=== PATIENT | male | born 1950 | race Caucasian/White ===

== ENCOUNTER 2017-06-22 18:46 | Inpatient (IN) ==
--- OUTSIDE RECORDS SUMMARY | 2017-06-22 19:32 | External Medical Summary | Referral Summary ---
:1950 Author Organization [facility] [place] [address] Care Team Providers Name Role Phone Kennedy Salazar Isabelle Primary Care Physician Encounter VC Date(s): 11/20/14 - 11/20/14 [facility] [place] [address] [place] Discharge Diagnosis: Gastroesophageal reflux disease Discharge Diagnosis: Benign essential hypertension Discharge Diagnosis: Diabetes Discharge Diagnosis: Allergic rhinitis Discharge Diagnosis: CAD (coronary artery disease) Discharge Diagnosis: Pure hypercholesterolemia Discharge Disposition: 01-Home or Self Care Attending Physician: Moises Mccoy MD Admitting Physician: Moises Mccoy MD Vital Signs Most recent to oldest [Reference Range]: 1 Temperature Tympanic [36.6-38.1 degC] 36.5 degC *LOW* (11/20/14 9:52 AM) Peripheral Pulse Rate [60-100 bpm] 66 bpm (11/20/14 9:52 AM) Blood Pressure [90-140/60-90 mmHg] 150/74 mmHg *HI* (11/20/14 9:52 AM) Problem List Condition Effective Dates Status Health Status Informant Benign essential hypertension Active (disorder)(Confirmed) Chronic obstructive pulmonary Active disease (COPD)(Confirmed) CAD (coronary artery Active disease)(Confirmed) CAD (coronary artery Active disease)(Confirmed) Gastroesophageal reflux disease Active (disorder)(Confirmed) Hip pain(Confirmed) Active Obesity(Confirmed) Active patient Paroxysmal atrial Active fibrillation(Confirmed) Pure hypercholesterolemia Active (disorder)(Confirmed) Pure hypercholesterolemia(Confirmed) Active Type 2 diabetes mellitus, Active controlled(Confirmed) Allergic rhinitis Active (disorder)(Confirmed) Allergic rhinitis(Confirmed) < 11/01/13 Resolved Allergies, Adverse Reactions, Alerts No Known Medication Allergies Medications amLODIPine 10 mg oral tablet tabs, Oral, Daily, 0 Refill(s) Start Date: 06/27/14 Status: Orderedatorvastatin 40 mg oral tablet 1 tabs, Oral, Bedtime (once a day), 0 Refill(s) Start Date: 08/02/13 Status: OrderedFish Oil 1200 mg oral capsule mg caps, Oral, BID, 0 Refill(s) Start Date: 06/01/15 Status: Orderedfluticasone 50 mcg/inh nasal spray See Instructions, USE ONE SPRAY(S) IN EACH NOSTRIL TWICE DAILY, # 1 Each, 11 Refill(s), Pharmacy: [id number] Start Date: 05/22/15 Status: OrderedGlucometer (DME) DME Item Using One Touch Ultra to check BGM 1 time daily. 250.00, See Instructions, # 1 Each, 0 Refill(s), Supply Start Date: 08/02/13 Status: Orderedglucosamine 1,500 mg, Oral, Daily, 0 Refill(s) Start Date: 08/02/13 Status: Orderedlisinopril 10 mg oral tablet 1 tabs, Oral, Daily, 0 Refill(s) Start Date: 08/02/13 Status: OrderedmetFORMIN 500 mg oral tablet 1,000 mg 2 tabs, Oral, BID, X 90 days, # 360 tabs, 1 Refill(s), Pharmacy: [facility], 2 tabs Oral BID,x90 days Start Date: 04/09/15 Stop Date: 10/06/15 Status: Orderedomeprazole 40 mg oral delayed release capsule 40 mg 1 caps, Oral, Daily, # 90 caps, 3 Refill(s), Pharmacy: [facility], 1 caps Oral Daily Start Date: 04/09/15 Status: Orderedone touch ultra blue test strip one touch ultra blue test strip, See Instructions, test blood sugars fasting and 2 hrs pc on 3 days per week E11.9, # 100 Each, 10 Refill(s), Pharmacy: [id number], test blood sugars fasting and 2 hrs pc on 3 days per week E11.9 Start Date: 01/31/15 Status: OrderedPradaxa 150 mg oral capsule 150 mg 1 caps, Oral, BID, # 60 caps, 0 Refill(s) Start Date: 05/22/15 Status: Orderedtamsulosin 0.4 mg oral capsule 0.4 mg 1 caps, Oral, Daily, # 90 caps, 3 Refill(s), Pharmacy: [facility], 1 caps Oral Daily Start Date: 04/09/15 Status: Ordered Results Chemistry Most recent to oldest [Reference Range]: 1 Sodium Lvl [135-144 mEq/L] 140 mEq/L (11/20/14 11:10 AM) Potassium Lvl [3.5-5.2 mEq/L] 4.4 mEq/L (11/20/14 11:10 AM) Chloride [99-111 mEq/L] 110 mEq/L (11/20/14 11:10 AM) CO2 [23-31 mEq/L] 25 mEq/L (11/20/14 11:10 AM) AGAP [3-20] 5 (11/20/14 11:10 AM) BUN [8-26 mg/dL] 17 mg/dL (11/20/14 11:10 AM) Glucose Lvl [70-99 mg/dL] 138 mg/dL *HI* (11/20/14 11:10 AM) Creatinine Lvl [0.72-1.25 mg/dL] 1.14 mg/dL (11/20/14 11:10 AM) eGFR [>60 mL/min] >60 mL/min 1 (11/20/14 11:10 AM) Calcium Lvl [8.9-10.5 mg/dL] 9.4 mg/dL (11/20/14 11:10 AM) Albumin Lvl [3.4-4.8 gm/dL] 4.0 gm/dL (11/20/14 11:10 AM) Total Protein [6.2-8.1 gm/dL] 7.2 gm/dL (11/20/14 11:10 AM) Globulin [1.8-4.0 gm/dL] 3.2 gm/dL (11/20/14 11:10 AM) ALT [0-55 U/L] 25 U/L (11/20/14 11:10 AM) AST [5-34 U/L] 17 U/L (11/20/14 11:10 AM) Alk Phos [40-150 U/L] 51 U/L (11/20/14 11:10 AM) Bili Total [0.2-1.2 mg/dL] 0.3 mg/dL (11/20/14 11:10 AM) LDL Direct [0-129 mg/dL] 64 mg/dL (11/20/14 11:10 AM) Hgb A1c [4.1-5.6 %] 6.6 % *HI* (11/20/14 11:10 AM) eAvg Glucose 142.7 mg/dL (11/20/14 11:10 AM) 1Result Comment: Multiply eGFR results by 1.21 for race. Immunizations Vaccine Date Refusal Reason influenza virus vaccine, live 11/23/12 influenza virus vaccine, live 11/25/11 zoster vaccine live 02/02/12 Procedures Procedure Date Related Diagnosis Body Site Colonoscopy1 01/21/08 Cerebral aneurysm rupture 02/27/99 Orchiectomy-left 1947 Bilateral inguinal hernia as a child2 Tonsillectomy3 1Sigmoid diverticulosis. Repeat colonoscopy in 10 years.- CT done February 22, [address] Martin showeddiverticulitis mild.2in [id number] Social History Social History Type Response Smoking Status Former smoker; Type: Cigarettes1 1quit 03/20/2010 Assessment and Plan Extracted from: Title: Office Visit Note Author: Moises Mccoy MD Date: 11/20/14 Assessment/Plan Allergic rhinitis Benign essential hypertension CAD (coronary artery disease) Ordered: Message for Lab Diabetes Ordered: Hemoglobin A1c Gastroesophageal reflux disease Pure hypercholesterolemia Plan: Continue all current medications. I'm going to have you bring her blood pressure cuff in to check it against ours since her blood pressure was high here today. I think that it is higher here than it is at home. Otherwise continue all current medications I'm checking your lab tests today and we'll send you a report when it's finished. We discussed the need to find a new primary care doctor. We'll need a med check up in 3 months. Ordered: Comprehensive Metabolic Panel LDL Direct
--- OUTSIDE RECORDS SUMMARY | 2017-06-22 19:32 | External Medical Summary | Referral Summary ---
:1950 Author Organization [facility] [place] [address] Care Team Providers Name Role Phone Kennedy Salazar V Primary Care Physician Encounter VC Date(s): 02/20/15 - 02/20/15 [facility] [place] [address] [place] Discharge Diagnosis: Gastroesophageal reflux disease Discharge Diagnosis: Type 2 diabetes mellitus, controlled Discharge Diagnosis: Allergic rhinitis Discharge Diagnosis: Benign essential hypertension Discharge Diagnosis: CAD (coronary artery disease) Discharge Diagnosis: Pure hypercholesterolemia Discharge Disposition: 01-Home or Self Care Attending Physician: Kennedy Salazar MD Admitting Physician: Kennedy Salazar MD Vital Signs Most recent to oldest [Reference Range]: 1 Temperature Tympanic [36.6-38.1 degC] 35.7 degC *LOW* (02/20/15 8:47 AM) Peripheral Pulse Rate [60-100 bpm] 65 bpm (02/20/15 8:47 AM) Blood Pressure [90-140/60-90 mmHg] 132/75 mmHg (02/20/15 8:47 AM) Problem List Condition Effective Dates Status Health Status Informant Allergic rhinitis due to animal hair Active and dander(Confirmed) Arthralgia of the pelvic region and Active thigh (finding)(Confirmed) Benign essential hypertension Active (disorder)(Confirmed) Chronic obstructive pulmonary Active disease (COPD)(Confirmed) CAD (coronary artery Active disease)(Confirmed) CAD (coronary artery Active disease)(Confirmed) Diabetes(Confirmed) Active Esophageal reflux(Confirmed) Active Gastroesophageal reflux disease Active (disorder)(Confirmed) Hip pain(Confirmed) Active Hypertension(Confirmed) Active Obesity(Confirmed) Active patient Paroxysmal atrial Active fibrillation(Confirmed) Pure hypercholesterolemia Active (disorder)(Confirmed) Pure hypercholesterolemia(Confirmed) Active Type 2 diabetes mellitus, Active controlled(Confirmed) Allergic rhinitis Active (disorder)(Confirmed) Allergic rhinitis(Confirmed) < 11/01/13 Resolved Allergies, Adverse Reactions, Alerts No Known Medication Allergies Medications amLODIPine 10 mg oral tablet tabs, Oral, Daily, 0 Refill(s) Start Date: 06/27/14 Status: Orderedaspirin 325 mg, Oral, Daily, 0 Refill(s) Start Date: 08/02/13 Status: Orderedatorvastatin 40 mg oral tablet 1 tabs, Oral, Bedtime (once a day), 0 Refill(s) Start Date: 08/02/13 Status: Orderedclopidogrel 75 mg oral tablet 75 mg 1 tabs, Oral, Daily, 0 Refill(s) Start Date: 08/07/14 Status: Orderedfluticasone 50 mcg/inh nasal spray See Instructions, USE ONE SPRAY(S) IN EACH NOSTRIL TWICE DAILY, # 16 unknown unit, 2 Refill(s), eRx:[id number], USE ONE SPRAY(S) IN EACH NOSTRIL TWICE DAILY Start Date: 08/28/14 Status: OrderedGlucometer (DME) DME Item Using One Touch Ultra to check BGM 1 time daily. 250.00, See Instructions, # 1 Each, 0 Refill(s), Supply Start Date: 08/02/13 Status: Orderedglucosamine 1,500 mg, Oral, Daily, 0 Refill(s) Start Date: 08/02/13 Status: Orderedlisinopril 10 mg oral tablet 1 tabs, Oral, Daily, 0 Refill(s) Start Date: 08/02/13 Status: OrderedmetFORMIN 500 mg oral tablet See Instructions, TAKE 2 TABLETS TWICE DAILY, # 360 tabs, eRx: [facility], TAKE 2TABLETS TWICE DAILY Start Date: 02/01/15 Status: Orderedomeprazole 40 mg oral delayed release capsule 1 caps, Oral, Daily, # 90 caps, 3 Refill(s), [facility], 1 caps Oral Daily Start Date: 05/09/14 Status: Orderedone touch ultra blue test strip one touch ultra blue test strip, See Instructions, test blood sugars fasting and 2 hrs pc on 3 days per week E11.9, # 100 Each, 10 Refill(s), Pharmacy: [facility], test blood sugars fasting and 2 hrs pc on 3 days per week E11.9 Start Date: 01/31/15 Status: Orderedtamsulosin 0.4 mg oral capsule 0.4 mg 1 caps, Oral, Daily, # 30 caps, 5 Refill(s), Pharmacy: [facility], 1 caps Oral Daily Start Date: 09/20/14 Status: Ordered Results No data available for this section Immunizations Vaccine Date Refusal Reason influenza virus vaccine, live 11/23/12 influenza virus vaccine, live 11/25/11 zoster vaccine live 02/02/12 Procedures Procedure Date Related Diagnosis Body Site Colonoscopy1 01/21/08 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 Repeat colonoscopy in [address] years.- CT done February 22, [address] Martin showeddiverticulitis mild.2in [id number] Social History Social History Type Response Smoking Status Former smoker; Type: Cigarettes1 1quit 03/20/2010 Assessment and Plan Extracted from: Title: Ambulatory Patient Education Author: Kennedy Salazar MD Date: Family Medicine Diabetes and Exercise Exercising regularly is important. It is not just about losing weight. It has many health benefits, such as: Improving your overall fitness, flexibility, and endurance. Increasing your bone density. Helping with weight control. Decreasing your body fat. Increasing your muscle strength. Reducing stress and tension. Improving your overall health. People with diabetes who exercise gain additional benefits because exercise: Reduces appetite. Improves the body's use of blood sugar (glucose). Helps lower or control blood glucose. Decreases blood pressure. Helps control blood lipids (such as cholesterol and triglycerides). Improves the body's use of the hormone insulin by: Increasing the body's insulin sensitivity. Reducing the body's insulin needs. Decreases the risk for heart disease because exercising: Lowers cholesterol and triglycerides levels. Increases the levels of good cholesterol (such as high-density lipoproteins [HDL]) in the body. Lowers blood glucose levels. YOUR ACTIVITY PLAN Choose an activity that you enjoy and set realistic goals. Your health care provider or agricultural extension educator can help you make an activity plan that works for you. Exercise regularly as directed by your health care provider. This includes: Performing resistance training twice a week such as push-ups, sit-ups, lifting weights, or using resistance bands. Performing 150 minutes of cardio exercises each week such as walking, running, or playing sports. Staying active and spending no more than 90 minutes at one time being inactive. Even short bursts of exercise are good for you. Three 10-minute sessions spread throughout the day are just as beneficial as a single 30-minute session. Some exercise ideas include: Taking the dog for a walk. Taking the stairs instead of the elevator. Dancing to your favorite song. Doing an exercise video. Doing your favorite exercise with a friend. RECOMMENDATIONS FOR EXERCISING WITH TYPE 1 OR TYPE 2 DIABETES Check your blood glucose before exercising. If blood glucose levels are greater than 240 mg/dL, check for urine ketones. Do not exercise if ketones are present. Avoid injecting insulin into areas of the body that are going to be exercised. For example, avoid injecting insulin into: The arms when playing tennis. The legs when jogging. Keep a record of: Food intake before and after you exercise. Expected peak times of insulin action. Blood glucose levels before and after you exercise. The type and amount of exercise you have done. Review your records with your health care provider. Your health care provider will help you to develop guidelines for adjusting food intake and insulin amounts before and after exercising. If you take insulin or oral hypoglycemic agents, watch for signs and symptoms of hypoglycemia. They include: Dizziness. Shaking. Sweating. Chills. Confusion. Drink plenty of water while you exercise to prevent dehydration or heat stroke. Body water is lost during exercise and must be replaced. Talk to your health care provider before starting an exercise program to make sure it is safe for you. Remember, almost any type of activity is better than none. Document Released: 04/24/2004 Document Revised: 06/19/2014 Document Reviewed: 07/12/2013 ExitCare Patient Information 2015 [place], [facility]. This information is not intended to replace advice given to you by your health care provider. Make sure you discuss any questions you have with your health care provider. No follow up information was provided. Extracted from: Title: Get acquainted/CDM Author: Kennedy Salazar MD Date: 02/20/15 Assessment/Plan Allergic rhinitis Benign essential hypertension CAD (coronary artery disease) Gastroesophageal reflux disease Pure hypercholesterolemia Type 2 diabetes mellitus, controlled Overall he seems to be doing well and we will continue present care. Continue physical therapy for the shoulder. We'll provide refills as needed. Follow-up again in about 3 months when he'll be due for A1c, BMP, lipids, microalbumin. We will send a copy of this dictation to his fixed capital clerk, Dr. Coates.
--- OUTSIDE RECORDS SUMMARY | 2017-06-22 19:32 | External Medical Summary | Referral Summary ---
:1950 Author Organization [facility] Address [address] [place] [address] Care Team Providers Name Role Phone Kennedy Salazar V Primary Care Physician Encounter VC Date(s): 05/29/16 - 05/29/16 [facility] [address] [place] [address] [place] Discharge Disposition: 01-Home or Self Care Attending Physician: Juan C New MD Admitting Physician: Juan C New MD Vital Signs Most recent to oldest [Reference Range]: 1 Peripheral Pulse Rate [60-100 bpm] 87 bpm (05/29/16 10:52 AM) Blood Pressure [90-140/60-90 mmHg] 135/79 mmHg (05/29/16 10:52 AM) Problem List Condition Effective Dates Status Health Status Informant Benign essential hypertension Active (disorder)(Confirmed) Chronic obstructive pulmonary Active disease (COPD)(Confirmed) CAD (coronary artery Active disease)(Confirmed) CAD (coronary artery Active disease)(Confirmed) Dyspnea(Confirmed) Active Gastroesophageal reflux disease Active (disorder)(Confirmed) Hip pain(Confirmed) Active History of percutaneous coronary Active intervention(Confirmed) Hypercholesteremia(Confirmed) Active Brain aneurysm(Confirmed) Active Obesity(Confirmed) Active patient Paroxysmal atrial Active fibrillation(Confirmed) Pure hypercholesterolemia Active (disorder)(Confirmed) Pure hypercholesterolemia(Confirmed) Active Snoring(Confirmed) Active Type 2 diabetes mellitus, Active controlled(Confirmed) [...] DAILY, # 1 Each, 11 Refill(s), Pharmacy: [facility] Start Date: 05/22/15 Status: OrderedGlucometer (DME) DME Item Using One Touch Ultra to check BGM 1 time daily. 250.00, See Instructions, # 1 Each, 0 Refill(s), Supply Start Date: 08/02/13 Status: OrderedGlucometer strips (DME) DME Item PT USES ONE TOUCH ULTRA TEST STRIPS TO CHECK BS BID FOR DX E11.9, See Instructions, # 100 Each, 0 Refill(s), Pharmacy: [facility], PT USES ONE TOUCH ULTRA TEST STRIPS TO CHECK BS BID FOR DX E11.9, Supply Start Date: 01/29/16 Status: Orderedlisinopril 40 mg oral tablet 40 mg 1 tabs, Oral, Daily, # 30 tabs, 0 Refill(s) Start Date: 05/08/16 Status: OrderedmetFORMIN 500 mg oral tablet See Instructions, TAKE 2 TABLETS TWICE DAILY, # 360 tabs, 1 Refill(s), eRx: [facility], TAKE 2 TABLETS TWICE DAILY Start Date: 11/19/15 Status: Orderedomeprazole 40 mg oral delayed release capsule See Instructions, TAKE 1 CAPSULE BY MOUTH EVERY DAY, # 90 caps, [id number], TAKE 1 CAPSULE BY MOUTH EVERY DAY Start Date: 05/19/16 Status: Orderedone touch ultra blue test strip one touch ultra blue test strip, See Instructions, test blood sugars fasting and 2 hrs pc on 3 days per week E11.9, # 100 Each, 10 Refill(s), Pharmacy: [facility], test blood sugars fasting and 2 hrs pc on 3 days per week E11.9 Start Date: 01/31/15 Status: OrderedONE TOUCH ULTRA BLUE TESTST(NEW)100 See Instructions, TEST BLOOD SUGARS TWICE DAILY, # 100 strip, 1 Refill(s), eRx: [id number], TEST BLOOD SUGARS TWICE DAILY Start Date: 04/14/16 Status: OrderedoxyCODONE Oral, Shoulder surgery 07/30/15, 0 Refill(s) Start Date: 09/21/15 Status: OrderedPradaxa 150 mg oral capsule 150 mg 1 caps, Oral, BID, # 60 caps, 0 Refill(s) Start Date: 05/22/15 Status: Orderedtamsulosin 0.4 mg oral capsule 0.4 mg 1 caps, Oral, Daily, # 90 caps, 3 Refill(s), Pharmacy: [facility], 1 caps Oral Daily Start Date: 04/09/15 Status: Ordered Results No data available for this section Immunizations Given and Recorded Vaccine Date Status Refusal Reason influenza virus vaccine, live 11/23/12 Given influenza virus vaccine, live 11/25/11 Given pneumococcal 13-valent conjugate vaccine 12/31/15 Given zoster vaccine live 02/02/12 Given Procedures Procedure Date Related Diagnosis Body Site Colonoscopy1 01/21/08 Cerebral aneurysm rupture 02/27/99 Orchiectomy-left 1948 Bilateral inguinal hernia as a child2 Tonsillectomy3 1Sigmoid diverticulosis. Repeat colonoscopy in [address].- CT done February 22, [address] Martin showeddiverticulitis mild.2in [id number] Social History Social History Type Response Smoking Status Former smoker; Type: Cigarettes1 1quit 03/20/2010 Assessment and Plan No data available for this section
--- OUTSIDE RECORDS SUMMARY | 2017-06-22 19:32 | External Medical Summary | Referral Summary ---
:1950 Author Organization [facility] [place] [address] Care Team Providers Name Role Phone Kennedy Salazar V Primary Care Physician Encounter VC Date(s): 08/07/14 - 08/07/14 [facility] [place] [address] Discharge Disposition: 01-Home or Self Care Attending Physician: Moises Mccoy MD Admitting Physician: Moises Mccoy MD Vital Signs Most recent to oldest [Reference Range]: 1 Temperature Tympanic [36.6-38.1 degC] 36.5 degC *LOW* (08/07/14 10:26 AM) Peripheral Pulse Rate [60-100 bpm] 64 bpm (08/07/14 10:26 AM) Blood Pressure [90-140/60-90 mmHg] 150/86 mmHg *HI* (08/07/14 10:26 AM) Problem List Condition Effective Dates Status Health Status Informant Arthralgia of the pelvic region and Active thigh (finding)(Confirmed) Benign essential hypertension Active (disorder)(Confirmed) Chronic obstructive pulmonary disease Active (COPD)(Confirmed) CAD (coronary artery Active disease)(Confirmed) CAD (coronary artery Active disease)(Confirmed) Diabetes(Confirmed) Active Esophageal reflux(Confirmed) Active Gastroesophageal reflux disease Active (disorder)(Confirmed) Hip pain(Confirmed) Active Hypertension(Confirmed) Active Obesity(Confirmed) Active patient Paroxysmal atrial Active fibrillation(Confirmed) Pure hypercholesterolemia Active (disorder)(Confirmed) Pure hypercholesterolemia(Confirmed) Active Allergic rhinitis Active (disorder)(Confirmed) Allergic rhinitis(Confirmed) Active Allergies, Adverse Reactions, Alerts No Known Medication [...] DAILY, # 16 unknown unit, 2 Refill(s), eRx:[facility], USE ONE SPRAY(S) IN EACH [...] 08/02/13 Status: OrderedmetFORMIN 500 mg oral tablet 2 tabs, Oral, BID, # 360 tabs, 3 Refill(s), Pharmacy: [facility], 2 tabs Oral BID Start Date: 05/09/14 Status: Orderedomeprazole 40 mg oral delayed release capsule 1 caps, Oral, Daily, # 90 caps, 3 Refill(s), Pharmacy: [facility], 1 caps Oral Daily Start Date: 05/09/14 Status: OrderedONE TOUCH ULTRA BLUE TEST STP See Instructions, TEST BLOOD SUGAR FASTING AND TWO HOURS AFTER MEALS ON 3 DAYS OF THE WEEK, # 100 strip, eRx: [facility], TEST BLOOD SUGAR FASTING AND TWO HOURS AFTER MEALS ON 3 DAYS OF THEWEEK Start Date: 12/27/13 Status: OrderedONE TOUCH ULTRA BLUE TEST STRIPS ONE TOUCH ULTRA BLUE TEST STRIPS, See Instructions, Test blood sugar fasting and two hours after meals on three days of the week. Dx: 250.00, # 150 Each, 3 Refill(s), Pharmacy: [facility],Test blood sugar fasting and two hours after meal... Start Date: 06/06/14 Status: OrderedONE TOUGH ULTRA BLUE TEST STRIPS ONE TOUGH ULTRA BLUE TEST STRIPS, See Instructions, Check blood sugar up to twice a day DX. 250.00, # 100 Each, 2 Refill(s), Pharmacy: [facility], Check blood sugar up to twice a day ; DX. 250.00 Start Date: 08/09/14 Status: Orderedtamsulosin 0.4 mg oral capsule 0.4 mg 1 caps, Oral, Daily, # 30 caps, 5 Refill(s), Pharmacy: [facility], 1 caps Oral Daily Start Date: 09/20/14 Status: Ordered Results Chemistry Most recent to oldest [Reference Range]: 1 Sodium Lvl [135-144 mEq/L] 141 mEq/L (08/07/14 11:50 AM) Potassium Lvl [3.5-5.2 mEq/L] 4.6 mEq/L (08/07/14 11:50 AM) Chloride [99-111 mEq/L] 109 mEq/L (08/07/14 11:50 AM) CO2 [23-31 mEq/L] 24 mEq/L (08/07/14 11:50 AM) AGAP [3-20] 8 (08/07/14 11:50 AM) BUN [8-26 mg/dL] 21 mg/dL (08/07/14 11:50 AM) Glucose Lvl [70-99 mg/dL] 118 mg/dL *HI* (08/07/14 11:50 AM) Creatinine Lvl [0.72-1.25 mg/dL] 1.08 mg/dL (08/07/14 11:50 AM) eGFR [>60 mL/min] >60 mL/min 1 (08/07/14 11:50 AM) Calcium Lvl [8.9-10.5 mg/dL] 10.0 mg/dL (08/07/14 11:50 AM) Albumin Lvl [3.4-4.8 gm/dL] 4.5 gm/dL (08/07/14 11:50 AM) Total Protein [6.2-8.1 gm/dL] 7.9 gm/dL (08/07/14 11:50 AM) Globulin [1.8-4.0 gm/dL] 3.4 gm/dL (08/07/14 11:50 AM) ALT [0-55 U/L] 30 U/L (08/07/14 11:50 AM) AST [5-34 U/L] 18 U/L (08/07/14 11:50 AM) Alk Phos [40-150 U/L] 58 U/L (08/07/14 11:50 AM) Bili Total [0.2-1.2 mg/dL] 0.4 mg/dL (08/07/14 11:50 AM) Hgb A1c [4.1-5.6 %] 6.4 % *HI* (08/07/14 11:50 AM) eAvg Glucose 137.0 mg/dL (08/07/14 11:50 AM) 1Result Comment: Multiply eGFR results by [...] 22, [address] Martin showeddiverticulitis mild.2in [id number] Social History Social History Type Response Smoking Status Former smoker; Type: Cigarettes1 1quit 03/20/2010 Assessment and Plan Extracted from: Title: Office Visit Note Author: Moises Mccoy MD Date: 08/07/14 Assessment/Plan Benign essential hypertension (disorder) CAD (coronary artery disease) Diabetes Gastroesophageal reflux disease (disorder) Paroxysmal atrial fibrillation Ordered: ECG Holter Pure hypercholesterolemia SOB (shortness of breath) Plan: I am ordering a Holter monitor to see if your going in and out of atrial fibrillation and if so how fast her heart rate is going. I'm also ordering a pulmonary function test to rule out COPD. I suspect that you're leg weakness is probably a combination of multiple factors. I believe that you're heart disease probably contributes. I suspect that you have some element of COPD. I also s uspect that atrial fibrillation may be contributing. He may have some level of deconditioning. I reviewed the echocardiogram done about a month ago. I' m setting you up to see Dr. Dominguez for your hronic cardiovascular care. I want to see back in 2 weeks. Regarding your diabetes hypertension high cholesterol and other chronic medical problems, continue all current medications. For med check up I'm going to recheck in 3 months. Also I want you to restart Flonase 2 squirts each nostril twice a day. To see if this will decrease your cough. Follow-up in 2 weeks. Ordered: Pulmonary Function Testing
--- OUTSIDE RECORDS SUMMARY | 2017-06-22 19:32 | External Medical Summary | Referral Summary ---
:1950 Author Organization [facility] Address [address] [place] [address] Care Team Providers Name Role Phone Kennedy Salazar V Primary Care Physician Encounter VC Date(s): 06/01/15 - 06/01/15 [facility] [address] [place] [address] [place] Discharge Diagnosis: Ingrowing left great toenail Discharge Disposition: 01-Home or Self Care Attending Physician: Kolby Vinson DPM Admitting Physician: Kolby Vinson DPM Vital Signs No data available for this section Problem List Condition Effective Dates Status Health [...] DAILY, # 1 Each, 11 Refill(s), Pharmacy: [facility] Start Date: 05/22/15 Status: OrderedGlucometer [...] days, # 360 tabs, 1 Refill(s), Pharmacy: [facility], 2 tabs Oral BID,x90 days Start Date: 04/09/15 Stop Date: 10/06/15 Status: Orderedomeprazole 40 mg oral delayed release capsule 40 mg 1 caps, Oral, Daily, # 90 caps, 3 Refill(s), Pharmacy: [facility], 1 caps Oral Daily Start Date: 04/09/15 Status: Orderedone touch ultra blue test strip one touch ultra blue test strip, See Instructions, test blood sugars fasting and 2 hrs pc on 3 days per week E11.9, # 100 Each, 10 Refill(s), Pharmacy: [facility], test blood sugars fasting and 2 hrs pc on 3 days per week E11.9 Start Date: 01/31/15 Status: OrderedPradaxa 150 mg oral capsule 150 mg 1 caps, Oral, BID, # 60 caps, 0 Refill(s) Start Date: 05/22/15 Status: Orderedtamsulosin 0.4 mg oral capsule 0.4 mg 1 caps, Oral, Daily, # 90 caps, 3 Refill(s), Pharmacy: [facility], 1 caps Oral Daily Start Date: 04/09/15 Status: Ordered Results No data available for this section Immunizations Vaccine Date Refusal Reason influenza virus vaccine, live 11/23/12 influenza virus vaccine, live 11/25/11 zoster vaccine live 02/02/12 Procedures Procedure Date Related Diagnosis Body Site Excision of nail and nail matrix, partial or 4/15/16 complete (eg, ingrown or deformed nail), for permanent removal; Colonoscopy1 01/21/08 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 Repeat colonoscopy in 10 years.- CT done February 22, [address] Martin showeddiverticulitis mild.2in [id number] Social History Social History Type Response Smoking Status Former smoker; Type: Cigarettes1 1quit 03/20/2010 Assessment and Plan Extracted from: Title: Office Visit Note Author: Kolby Vinson DPM Date: 06/01/15 Assessment/Plan Ingrowing left great toenail Patient opted for permanent removal of nail borderwith phenol application in clinic today. We discussed possible complications of procedure including infection, recurrent nail growth, or reaction to phenol. PROCEDURE: Partial phenol and alcohol matrixectomy,medial nail border of left hallux. Left hallux was anesthetized with 3 cc of 1:1 mixture of lidocaine 1% plain. Sterile Betadine prep was performed to the involved digit. Digital tournicot was applied. After adequate anesthesia to the involved digit, offending nail border was removed atraumatically utilizing #62 blade and curved hemostat. Any remaining debris from nail matrix was cleaned utilizing small curette. Phenol stick was appl ied to the nail matrix for 30 seconds total of 4 times and it was flushed with alcohol. Topical antibiotic ointment was applied and digital tournicot was released. Sterile dressing was applied.Patient tolerated procedure well. 1. Post-procedure soaking instruction was given to the patient. 2. Return to clinic if condition worsens. 3. Signs and symptoms of infection werediscussed with the patient.
--- OUTSIDE RECORDS SUMMARY | 2017-06-22 19:33 | External Medical Summary | Referral Summary ---
:1950 Author [facility] Address [address] [place] [address] [place] [address] Care Team Providers Name Role Phone Kennedy Salazar V Primary Care Physician Encounter VC Date(s): 08/07/14 - 08/07/14 [facility] [place] [address] [place] Discharge Disposition: [...] DAILY, # 16 unknown unit, 2 Refill(s), [facility], USE ONE SPRAY(S) IN EACH [...] TABLETS TWICE DAILY, # 360 tabs, eRx: [facility], TAKE 2TABLETS TWICE DAILY Start Date: 02/01/15 Status: Orderedomeprazole 40 mg oral delayed release capsule 1 caps, Oral, Daily, # 90 caps, 3 Refill(s), [facility], [facility] Oral Daily Start Date: 05/09/14 Status: Orderedone touch ultra blue test strip one touch ultra blue test strip, See Instructions, test blood sugars fasting and 2 hrs pc on 3 days per week E11.9, # 100 Each, 10 Refill(s), Pharmacy: [facility], test blood sugars fasting and 2 hrs pc on 3 days per week E11.9 Start Date: 01/31/15 Status: Orderedtamsulosin 0.4 mg oral capsule 0.4 mg 1 caps, Oral, Daily, # 30 caps, 5 Refill(s), Pharmacy: [facility], 1 caps Oral Daily [...] 22, [address] Martin showeddiverticulitis mild.2in [id number] Social History Social History Type Response Smoking [...] [facility] I want to see back [...]
--- OUTSIDE RECORDS SUMMARY | 2017-06-22 19:33 | External Medical Summary | Referral Summary ---
:1950 Author Organization [facility] [place] [address] Care Team Providers Name Role Phone Jamelmark Kennedy Walton Primary Care Physician Encounter Date(s): 05/08/16 - 05/08/16 [facility] [place] [address] [place] Discharge Diagnosis: Bilateral leg weakness Discharge Diagnosis: Arteriosclerotic coronary artery disease Discharge Diagnosis: History of COPD Discharge Diagnosis: Bilateral arm weakness Discharge Diagnosis: Exertional shortness of breath Discharge Diagnosis: Benign essential hypertension Discharge Disposition: 01-Home or Self Care Attending Physician: Cassidy Ortiz APRN Admitting Physician: Cassidy Ortiz APRN Vital Signs Most recent to oldest [Reference Range]: 1 Peripheral Pulse Rate [60-100 bpm] 72 bpm (05/08/16 2:53 PM) Blood Pressure [90-140/60-90 mmHg] 130/75 mmHg (05/08/16 2:53 PM) SpO2 98 % (05/08/16 2:53 PM) Problem List Condition Effective Dates Status Health Status Informant Benign essential hypertension Active (disorder)(Confirmed) Chronic obstructive pulmonary Active disease (COPD)(Confirmed) CAD (coronary artery Active disease)(Confirmed) CAD (coronary artery Active disease)(Confirmed) Gastroesophageal reflux disease Active (disorder)(Confirmed) Hip pain(Confirmed) Active Hypercholesteremia(Confirmed) Active Obesity(Confirmed) Active patient Paroxysmal atrial Active [...] DAILY, # 1 Each, 11 Refill(s), Pharmacy: [facility] Start Date: 05/22/15 Status: OrderedGlucometer (DME) DME Item Using One Touch Ultra to check BGM 1 time daily. 250.00, See Instructions, # 1 Each, 0 Refill(s), Supply Start Date: 08/02/13 Status: OrderedGlucometer strips (DME) DME Item PT USES ONE TOUCH ULTRA TEST STRIPS TO CHECK BS BID FOR DX E11.9, See Instructions, # 100 Each, 0 Refill(s), Pharmacy: [id number], PT USES ONE TOUCH ULTRA TEST STRIPS TO CHECK BS BID FOR DX E11.9, Supply Start Date: 01/29/16 Status: Orderedlisinopril 40 mg oral tablet 40 mg 1 tabs, Oral, Daily, # 30 tabs, 0 Refill(s) Start Date: 05/08/16 Status: OrderedmetFORMIN 500 mg oral tablet See Instructions, TAKE 2 TABLETS TWICE DAILY, # 360 tabs, 1 Refill(s), eRx: [facility], TAKE 2 TABLETS TWICE DAILY Start Date: 11/19/15 Status: Orderedomeprazole 40 mg oral delayed release capsule 40 mg 1 caps, Oral, Daily, # 90 caps, 3 Refill(s), Pharmacy: [facility], 1 caps Oral Daily Start Date: 04/09/15 Status: Orderedone touch ultra blue test strip one touch ultra blue test strip, See Instructions, test blood sugars fasting and 2 hrs pc on 3 days per week E11.9, # 100 Each, 10 Refill(s), Pharmacy: [facility], test blood sugars fasting and 2 hrs pc on 3 days per week E11.9 Start Date: 01/31/15 Status: OrderedONE TOUCH ULTRA BLUE TESTST(NEW)100 See Instructions, TEST BLOOD SUGARS TWICE DAILY, # 100 strip, 1 Refill(s), eRx: [id number], TEST BLOOD SUGARS TWICE DAILY Start Date: 04/14/16 Status: OrderedoxyCODONE Oral, Shoulder surgery 07/30/15, 0 Refill(s) Start Date: 09/21/15 Status: OrderedPradaxa 150 mg oral capsule 150 mg 1 caps, Oral, BID, # 60 caps, 0 Refill(s) Start Date: 05/22/15 Status: Orderedtamsulosin 0.4 mg oral capsule 0.4 mg 1 caps, Oral, Daily, # 90 caps, 3 Refill(s), Pharmacy: [facility], 1 caps Oral Daily [...] 22, [address] Martin showeddiverticulitis mild.2in [id number] Social History Social History Type Response Smoking Status Former smoker; Type: Cigarettes1 1quit 03/20/2010 Assessment and Plan Extracted from: Title: Office Visit Note Author: Cassidy Ortiz APRN Date: 05/08/16 Assessment/Plan Arteriosclerotic coronary artery disease Experiencing no chestbut has a new onset of shortness of breath with exertion. Will refer to cardiologistfor further evaluationas soon as possible. Appointment made with Dr. eNw for Thursday morning. Ordered: Office Visit Level 4 Est 50634 Benign essential hypertension Blood pressure under good control with his current medication regime. Ordered: Office Visit Level 4 Est 50396 Bilateral arm weakness, Bilateral leg weakness Exertional weaknessnot associated with chest pain. EKGshows no acute change. Ordered: Office Visit Level 4 Est 50893 Exertional shortness of breath Will obtain chest x-ray and EKG to evaluate. EKG appears unchanged from previous. Will refer to director of marketing for further evaluationas soon as possible Ordered: Office Visit Level 4 Est 12634 XR Chest 2 Views History of COPD Ordered: Office Visit Level 4 Est 74815
--- OUTSIDE RECORDS SUMMARY | 2017-06-22 19:33 | External Medical Summary | Referral Summary ---
:1950 Author Organization [facility] Address [address] [place] [address] Care Team Providers Name Role Phone JamelmarkKennedy V Primary Care Physician Encounter VC Date(s): 08/08/14 - 08/08/14 [facility] [address] [place] [address] [place] Discharge Disposition: 01-Home or Self Care Attending Physician: Moises Mccoy MD Admitting Physician: Moises Mccoy MD Vital Signs No data available for this [...] DAILY, # 16 unknown unit, 2 Refill(s), eRx:[facility], USE ONE SPRAY(S) IN EACH [...] TABLETS TWICE DAILY, # 360 tabs, eRx: [facility], TAKE 2TABLETS TWICE DAILY Start Date: 02/01/15 Status: Orderedomeprazole 40 mg oral delayed release capsule 1 caps, Oral, Daily, # 90 caps, 3 Refill(s), Pharmacy: [facility], 1 caps Oral Daily Start Date: 05/09/14 Status: Orderedone touch ultra blue test strip one touch ultra blue test strip, See Instructions, test blood sugars fasting and 2 hrs pc on 3 days per week E11.9, # 100 Each, 10 Refill(s), Pharmacy: [facility], test blood sugars fasting and 2 hrs pc on 3 days per week E11.9 Start Date: 01/31/15 Status: Orderedtamsulosin 0.4 mg oral capsule 0.4 mg 1 caps, Oral, Daily, # 30 caps, 5 Refill(s), Pharmacy: [facility], 1 caps Oral Daily Start [...] 22, [address] Martin showeddiverticulitis mild.2in [id number] Social History Social History Type Response Smoking Status Former smoker; Type: Cigarettes1 1quit 03/20/2010 Assessment and Plan No data available for this section
--- OUTSIDE RECORDS SUMMARY | 2017-06-22 19:33 | External Medical Summary | Referral Summary ---
:1950 Author Organization [facility] Address [address] [place] [address] [place] [address] Care Team Providers Name Role Phone Kennedy Salazar V Primary Care Physician Encounter VC Date(s): 06/04/16 - 06/04/16 [facility] [address] [place] [address] [place] [address] [place] Discharge Disposition: 01-Home or Self Care Attending Physician: Juan C New MD Admitting Physician: Juan C New MD Referring Physician: Kennedy Salazar MD Vital Signs Most recent to oldest [Reference Range]: 1 Peripheral Pulse Rate [60-100 bpm] 58 bpm *LOW* (06/04/16 3:33 PM) Blood Pressure [90-140/60-90 mmHg] 140/70 mmHg (06/04/16 3:33 PM) Problem List Condition Effective Dates Status [...] DAILY, # 1 Each, 11 Refill(s), Pharmacy: [facility] Start Date: 06/02/16 Status: OrderedGlucometer (DME) DME Item Using One Touch Ultra to check BGM 1 time daily. 250.00, See Instructions, # 1 Each, 0 Refill(s), Supply Start Date: 08/02/13 Status: OrderedGlucometer strips (DME) DME Item PT USES ONE TOUCH ULTRA TEST STRIPS TO CHECK BS BID FOR DX E11.9, See Instructions, # 100 Each, 0 Refill(s), Pharmacy: [facility], PT USES ONE TOUCH ULTRA TEST STRIPS TO CHECK BS BID FOR DX E11.9, Supply Start Date: 01/29/16 Status: Orderedlisinopril 40 mg oral tablet 40 mg 1 tabs, Oral, Daily, # 30 tabs, 0 Refill(s) Start Date: 05/08/16 Status: OrderedmetFORMIN 500 mg oral tablet See Instructions, TAKE 2 TABLETS TWICE DAILY, # 360 tabs, 1 Refill(s), eRx: [facility], TAKE 2 TABLETS TWICE DAILY Start Date: 11/19/15 Status: Orderedomeprazole 40 mg oral delayed release capsule See Instructions, TAKE 1 CAPSULE BY MOUTH EVERY DAY, # 90 caps, eRx: [id number], TAKE 1 CAPSULE BY MOUTH EVERY DAY Start Date: 05/19/16 Status: Orderedone touch ultra blue test strip one touch ultra blue test strip, See Instructions, test blood sugars fasting and 2 hrs pc on 3 days per week E11.9, # 100 Each, 10 Refill(s), Pharmacy: [facility], test blood sugars fasting and 2 hrs pc on 3 days per week E11.9 Start Date: 01/31/15 Status: OrderedONE TOUCH ULTRA BLUE TESTST(NEW)100 See Instructions, TEST BLOOD SUGARS TWICE DAILY, # 100 strip, 1 Refill(s), eRx: [id number], TEST BLOOD SUGARS TWICE DAILY Start Date: 04/14/16 Status: OrderedoxyCODONE Oral, Shoulder surgery 07/30/15, 0 Refill(s) Start Date: 09/21/15 Status: OrderedPradaxa 150 mg oral capsule 150 mg 1 caps, Oral, BID, # 60 caps, 0 Refill(s) Start Date: 05/22/15 Status: Orderedtamsulosin 0.4 mg oral capsule See Instructions, TAKE 1 CAPSULE BY MOUTH EVERY DAY, # 90 caps, eRx: [facility] [id number], TAKE 1 CAPSULE BY MOUTH EVERY DAY Start Date: 06/02/16 Status: Ordered Results No data available for [...] 22, [address] Martin showeddiverticulitis mild.2in [id number] Social History Social History Type Response Smoking Status Former smoker; Type: Cigarettes1 1quit 03/20/2010 Assessment and Plan No data available for this section
--- OUTSIDE RECORDS SUMMARY | 2017-06-22 19:33 | External Medical Summary | Referral Summary ---
:1950 Author [facility] Address [address] [place] [address] [place] [address] Care Team Providers Name Role Phone Kennedy Salazar V Primary Care Physician Encounter VC Date(s): 06/23/16 - 06/23/16 [facility] [place] [address] Discharge Disposition: 01-Home or Self Care Attending Physician: Kennedy Salazar MD Admitting Physician: Kennedy Salazar MD Vital Signs Most recent to oldest [Reference Range]: 1 Blood Pressure [90-140/60-90 mmHg] 144/76 mmHg *HI* (06/23/16 8:21 AM) Problem List Condition Effective Dates Status [...] DAILY, # 1 Each, 11 Refill(s), Pharmacy: [facility] [id number] Start Date: 06/02/16 Status: OrderedGlucometer (DME) DME Item Using One Touch Ultra to check BGM 1 time daily. 250.00, See Instructions, # 1 Each, 0 Refill(s), Supply Start Date: 08/02/13 Status: OrderedGlucometer strips (DME) DME Item PT USES ONE TOUCH ULTRA TEST STRIPS TO CHECK BS BID FOR DX E11.9, See Instructions, # 100 Each, 0 Refill(s), Pharmacy: [facility] [id number], PT USES ONE TOUCH ULTRA TEST STRIPS TO CHECK BS BID FOR DX E11.9, Supply Start Date: 01/29/16 Status: Orderedlisinopril 40 mg oral tablet 40 mg 1 tabs, Oral, Daily, # 30 tabs, 0 Refill(s) Start Date: 05/08/16 Status: OrderedmetFORMIN 500 mg oral tablet See Instructions, TAKE 2 TABLETS TWICE DAILY, # 360 tabs, 1 Refill(s), eRx: [facility], TAKE 2 TABLETS TWICE DAILY Start Date: 11/19/15 Status: Orderedomeprazole 40 mg oral delayed release capsule See Instructions, TAKE 1 CAPSULE BY MOUTH EVERY DAY, # 90 caps, eRx: [facility] [id number], TAKE 1 CAPSULE BY MOUTH EVERY DAY Start Date: 05/19/16 Status: Orderedone touch ultra blue test strip one touch ultra blue test strip, See Instructions, test blood sugars fasting and 2 hrs pc on 3 days per week E11.9, # 100 Each, 10 Refill(s), Pharmacy: [facility], test blood sugars fasting and 2 hrs pc on 3 days per week E11.9 Start Date: 01/31/15 Status: OrderedONE TOUCH ULTRA BLUE TESTST(NEW)100 See Instructions, TEST BLOOD SUGARS TWICE DAILY, # 100 strip, 1 Refill(s), [id number], TEST BLOOD SUGARS TWICE DAILY Start Date: 04/14/16 Status: OrderedPradaxa 150 mg oral capsule 150 mg 1 caps, Oral, BID, # 60 caps, 0 Refill(s) Start Date: 05/22/15 Status: Orderedtamsulosin 0.4 mg oral capsule See Instructions, TAKE 1 CAPSULE BY MOUTH EVERY DAY, # 90 caps, eRx: [facility] [id number], TAKE 1 CAPSULE BY MOUTH EVERY DAY Start Date: 06/02/16 Status: Ordered Results Chemistry Most recent to oldest [Reference Range]: 1 Hep C Ab Negative (06/23/16 9:31 AM) Immunizations Given and Recorded Vaccine Date Status Refusal Reason influenza virus vaccine, live 11/23/12 Given influenza virus vaccine, live 11/25/11 Given pneumococcal 13-valent conjugate vaccine 12/31/15 Given zoster vaccine live 02/02/12 Given Procedures Procedure Date Related Diagnosis Body Site Miscellaneous1 06/16/12 Colonoscopy2 01/21/08 Cerebral aneurysm rupture 02/27/99 Orchiectomy-left 194 Bilateral inguinal hernia as a child3 H/O rotator cuff surgery Tonsillectomy4 1Estimated date - cardiac [id number] diverticulosis. Repeat colonoscopy in [address].- CT done February 22, [address] Martin showeddiverticulitis mild.3in [id number] Social History Social History Type Response Smoking Status Former smoker; Type: Cigarettes1 1apprx. 40 years. Assessment and Plan Extracted from: Title: Ambulatory Patient Education Author: Bert Burch RN Date: 06/23/16 Preventive Health Exercising to Stay Healthy Exercising regularly is important. It has many health benefits, such as: Improving your overall fitness, flexibility, and endurance. Increasing your bone density. Helping with weight control. Decreasing your body fat. Increasing your muscle strength. Reducing stress and tension. Improving your overall health. In order to become healthy and stay healthy, it is recommended that you do moderate-intensity and vigorous-intensity exercise. You can tell that you are exercising at a moderate intensity if you have a higher heart rate and faster breathing, but you are still able to hold a conversation. You can tell that you are exercising at a vigorous intensity if you are breathing much harder and faster and cannot hold a conversation while exercising. HOW OFTEN SHOULD I EXERCISE? Choose an activity that you enjoy and set realistic goals. Your health care provider can help you to make an activity plan that works for you. Exercise regularly as directed by your health care provider. This may include: Doing resistance training twice each week, such as: Push-ups. Sit-ups. Lifting weights. Using resistance bands. Doing a given intensity of exercise for a given amount of time. Choose from these options: 150 minutes of moderate-intensity exercise every week. 75 minutes of vigorous-intensity exercise every week. A mix of moderate-intensity and vigorous-intensity exercise every week. Children, women, people who are out of shape, people who are overweight, and older adults may need to consult a health care provider for individual recommendations. If you have any sort of medi forrest condition, be sure to consult your health care provider before starting a new exercise program. WHAT ARE SOME EXERCISE IDEAS? Some moderate-intensity exercise ideas include: Walking at a rate of 1 mile in 15 minutes. Biking. Hiking. Golfing. Dancing. Some vigorous-intensity exercise ideas include: Walking at a rate of at least 4.5 miles per hour. Jogging or running at a rate of 5 miles per hour. Biking at a rate of at least 10 miles per hour. Lap swimming. Roller-skating or in-line skating. Cross-country skiing. Vigorous competitive sports, such as football, basketball, and soccer. Jumping rope. Aerobic dancing. WHAT ARE SOME EVERYDAY ACTIVITIES THAT CAN HELP ME TO GET EXERCISE? Yard work, such as: Pushing a attending radiologist. Raking and bagging leaves. Washing and waxing your car. Pushing a stroller. Shoveling snow. Gardening. Washing windows or floors. HOW CAN I BE MORE ACTIVE IN MY DAY-TO-DAY ACTIVITIES? Use the stairs instead of the elevator. Take a walk during your lunch break. If you drive, park your car farther away from work or school. If you take public transportation, get off one stop early and walk the rest of the way. Make all of your phone calls while standing up and walking around. Get up, stretch, and walk around every 30 minutes throughout the day. WHAT GUIDELINES SHOULD I FOLLOW WHILE EXERCISING? Do not exercise so much that you hurt yourself, feel dizzy, or get very short of breath. Consult your health care provider before starting a new exercise program. Wear comfortable clothes and shoes with good support. Drink plenty of water while you exercise to prevent dehydration or heat stroke. Body water is lost during exercise and must be replaced. Work out until you breathe faster and your heart beats faster. This information is not intended to replace advice given to you by your health care provider. Make sure you discuss any questions you have with your health care provider. Document Released: 03/07/2011 Document Revised: 02/23/2015 Document Reviewed: 07/06/2014 [employer] Interactive Patient Education 2016 [employer] No follow up information was provided.
--- OUTSIDE RECORDS SUMMARY | 2017-06-22 19:33 | External Medical Summary | Referral Summary ---
:1950 Author Organization [facility] [place] [address] Care Team Providers Name Role Phone Kennedy Salazar Isabelle Primary Care Physician Encounter VC [facility] [id number] Date(s): 11/20/14 - 11/20/14 [facility] [place] [facility] [place] [address] [place] Discharge Diagnosis: [...] DAILY, # 16 unknown unit, 2 Refill(s), [facility], USE ONE SPRAY(S) IN EACH [...] OF THE WEEK, # 100 strip, eRx: [facility], TEST BLOOD SUGAR FASTING AND TWO HOURS AFTER MEALS ON 3 DAYS OF THEWEEK Start Date: 12/27/13 Status: OrderedONE TOUCH ULTRA BLUE TEST STRIPS ONE TOUCH ULTRA BLUE TEST STRIPS, See Instructions, Test blood sugar fasting and two hours after meals on three days of the week. Dx: 250.00, # 150 Each, 3 Refill(s), Pharmacy: [facility],Test blood sugar fasting and two hours after meal... Start Date: 06/06/14 Status: OrderedONE TOUGH ULTRA BLUE TEST STRIPS ONE TOUGH ULTRA BLUE TEST STRIPS, See Instructions, Check blood sugar up to twice a day DX. 250.00, # 100 Each, 2 Refill(s), Pharmacy: [facility], Check blood sugar up to twice a day ; DX. 250.00 Start Date: 08/09/14 Status: Orderedtamsulosin 0.4 mg oral capsule 0.4 mg 1 caps, Oral, Daily, # 30 caps, 5 Refill(s), Pharmacy: [facility], 1 caps Oral [...] 22, [address] Martin showeddiverticulitis mild.2in [id number] Social History Social History Type Response Smoking [...]
--- OUTSIDE RECORDS SUMMARY | 2017-06-22 19:33 | External Medical Summary | Referral Summary ---
:1950 Author Organization [facility] Address [address] [place] [address] Care Team Providers Name Role Phone Kennedy Salazar V Primary Care Physician Encounter VC Date(s): 05/29/16 - 05/29/16 [facility] [address] [place] [address] [place] Discharge Disposition: 01-Home or Self Care Attending Physician: Juan C New MD Admitting Physician: Juan C New MD Vital Signs No data available for [...] DAILY, # 1 Each, 11 Refill(s), [facility] Start Date: 05/22/15 Status: OrderedGlucometer (DME) DME Item Using One Touch Ultra to check BGM 1 time daily. 250.00, See Instructions, # 1 Each, 0 Refill(s), Supply Start Date: 08/02/13 Status: OrderedGlucometer strips (DME) DME Item PT USES ONE TOUCH ULTRA TEST STRIPS TO CHECK BS BID FOR DX E11.9, See Instructions, # 100 Each, 0 Refill(s), [id number], PT USES ONE TOUCH ULTRA TEST STRIPS TO CHECK BS BID FOR DX E11.9, Supply Start Date: 01/29/16 Status: Orderedlisinopril 40 mg oral tablet 40 mg 1 tabs, Oral, Daily, # 30 tabs, 0 Refill(s) Start Date: 05/08/16 Status: OrderedmetFORMIN 500 mg oral tablet See Instructions, TAKE 2 TABLETS TWICE DAILY, # 360 tabs, 1 Refill(s), eRx: [facility], TAKE 2 TABLETS TWICE DAILY Start Date: 11/19/15 Status: Orderedomeprazole 40 mg oral delayed release capsule See Instructions, TAKE 1 CAPSULE BY MOUTH EVERY DAY, # 90 caps, [id number], TAKE 1 CAPSULE BY MOUTH EVERY DAY Start Date: 05/19/16 Status: Orderedone touch ultra blue test strip one touch ultra blue test strip, See Instructions, test blood sugars fasting and 2 hrs pc on 3 days per week E11.9, # 100 Each, 10 Refill(s), [facility], test blood sugars fasting and 2 hrs pc on 3 days per week E11.9 Start Date: 01/31/15 Status: OrderedONE TOUCH ULTRA BLUE TESTST(NEW)100 See Instructions, TEST BLOOD SUGARS TWICE DAILY, # 100 strip, 1 Refill(s), [facility]Rx: [id number], TEST BLOOD SUGARS TWICE DAILY Start Date: 04/14/16 Status: OrderedoxyCODONE Oral, Shoulder surgery 07/30/15, 0 Refill(s) Start Date: 09/21/15 Status: OrderedPradaxa 150 mg oral capsule 150 mg 1 caps, Oral, BID, # 60 caps, 0 Refill(s) Start Date: 05/22/15 Status: Orderedtamsulosin 0.4 mg oral capsule 0.4 mg 1 caps, Oral, Daily, # 90 caps, 3 Refill(s), Pharmacy: [facility], 1 caps Oral [...] 22, [address] Martin showeddiverticulitis mild.2in [id number] Social History Social History Type Response Smoking Status Former smoker; Type: Cigarettes1 1quit 03/20/2010 Assessment and Plan No data available for this section
--- OUTSIDE RECORDS SUMMARY | 2017-06-22 19:33 | External Medical Summary | Referral Summary ---
:1950 Author Organization [facility] Address [address] [place] [address] Care Team Providers Name Role Phone Kennedy Salazar V Primary Care Physician Encounter VC Date(s): 06/27/14 - 06/27/14 [facility] [address] [place] [address] [place] Discharge Diagnosis: Nocturia Discharge Diagnosis: Male pelvic pain Discharge Disposition: 01-Home or Self Care Attending Physician: Seven Baldwin MD Admitting Physician: Seven Baldwin MD Vital Signs Most recent to oldest [Reference Range]: 1 Blood Pressure [90-140/60-90 mmHg] 138/86 mmHg (06/27/14 2:16 PM) Problem List Condition Effective Dates Status [...] DAILY, # 16 unknown unit, 2 Refill(s), [facility], USE ONE SPRAY(S) IN EACH [...] Daily, # 90 caps, 3 Refill(s), [facility]: [facility], 1 caps Oral Daily Start Date: 05/09/14 Status: OrderedONE TOUCH ULTRA BLUE TEST STP See Instructions, TEST BLOOD SUGAR FASTING AND TWO HOURS AFTER MEALS ON 3 DAYS OF THE WEEK, # 100 strip, eRx: [facility], TEST BLOOD SUGAR FASTING AND TWO HOURS AFTER MEALS ON 3 DAYS OF THEWEEK Start Date: 12/27/13 Status: OrderedONE TOUCH ULTRA BLUE TEST STRIPS ONE TOUCH ULTRA BLUE TEST STRIPS, See Instructions, Test blood sugar fasting and two hours after meals on three days of the week. Dx: 250.00, # 150 Each, 3 Refill(s), Pharmacy: [facility],Test blood sugar fasting and two hours after meal... Start Date: 06/06/14 Status: OrderedONE TOUGH ULTRA BLUE TEST STRIPS ONE TOUGH ULTRA BLUE TEST STRIPS, See Instructions, Check blood sugar up to twice a day DX. 250.00, # 100 Each, 2 Refill(s), Pharmacy: [facility], Check blood sugar up to twice a day ; DX. 250.00 Start Date: 08/09/14 Status: Orderedtamsulosin 0.4 mg oral capsule 0.4 mg 1 caps, Oral, Daily, # 30 caps, 5 Refill(s), Pharmacy: [facility], 1 caps Oral Daily Start Date: 09/20/14 Status: Ordered Results No data available for this section Immunizations Vaccine Date Refusal Reason influenza virus vaccine, live 11/23/12 influenza virus vaccine, live 11/25/11 zoster vaccine live 02/02/12 Procedures Procedure Date Related Diagnosis Body Site Measurement of post-voiding residual urine and/or 06/27/14 bladder capacity by ultrasound, non-imaging Colonoscopy1 01/21/08 Cerebral aneurysm rupture 02/27/99 Orchiectomy-left 1947 Bilateral inguinal hernia as a child2 Tonsillectomy3 1Sigmoid diverticulosis. Repeat colonoscopy in [address].- CT done February 22, [address] Martin showeddiverticulitis mild.2in [id number] Social History Social History Type Response Smoking Status Former smoker; Type: Cigarettes1 1quit 03/20/2010 Assessment and Plan Extracted from: Title: Ambulatory Patient Education Author: Seven Baldwin MD Date: 01/30 Emergency Medicine Abdominal Pain, Adult Many things can cause abdominal pain. Usually, abdominal pain is not caused by a disease and will improve without treatment. It can often be observed and treated at home. Your health care provider will do a physical exam and possibly order blood tests and X-rays to help determine the seriousness of your pain. However, in many cases, more time must pass before a clear cause of the pain can be found. Be fore that point, your health care provider may not know if you need more testing or further treatment. HOME CARE INSTRUCTIONS Monitor your abdominal pain for any changes. The following actions may help to alleviate any discomfort you are experiencing: Only take [id number] or prescription medicines as directed by your health care provider. Do not take laxatives unless directed to do so by your health care provider. Try a clear liquid diet (broth, tea, or water) as directed by your health care provider. Slowly move to a bland diet as tolerated. SEEK MEDICAL CARE IF: You have unexplained abdominal pain. You have abdominal pain associated with nausea or diarrhea. You have pain when you urinate or have a bowel movement. You experience abdominal pain that wakes you in the night. You have abdominal pain that is worsened or improved by eating food. You have abdominal pain that is worsened with eating fatty foods. SEEK IMMEDIATE MEDICAL CARE IF: Your pain does not go away within 2 hours. You have a fever. You keep throwing up (vomiting ). Your pain is felt only in portions of the abdomen, such as the right side or the left lower portion of the abdomen. You pass bloody or black tarry stools. MAKE SURE YOU: Understand these instructions. Will watch your condition. Will get help right away if you are not doing well or get worse. Document Released: 11/12/2005 Document Revised: 11/23/2013 Document Reviewed: 10/12/2013 [facility] Patient Information 2014 [facility]. No follow up information was provided. Extracted from: Title: Office Visit Note Author: Seven Baldwin MD Date: 06/27/14 Assessment/Plan 1.Nocturia Possibly a form of bladder instability but the glucosuria could certainly be playing a role. I discussed with him how it is important to keep the diabetes under control. I gave him samples of Toviaz 4 mg, one or 2 tablets daily at bedtime. He agreed to get back to me to let me know how that works for him. He is to cut back on fluids 4 hours before bedtime. 2.Male pelvic pain We'll see what outside records show. Follow-up here emphasized. He could require transrectal ultrasound to see if there is a prominent median lobe, etc. Possibly a voiding flow rate.
--- OUTSIDE RECORDS SUMMARY | 2017-06-22 19:33 | External Medical Summary | Referral Summary ---
:1950 Author [facility] Address [address] [place] [address] [place] [address] Care Team Providers Name Role Phone Kennedy Salazar V Primary Care Physician Encounter VC Date(s): 08/07/14 - 08/07/14 [facility] [place] [facility] [place] [address] [place] Discharge Disposition: [...] DAILY, # 16 unknown unit, 2 Refill(s), [facility], USE ONE SPRAY(S) IN EACH [...] TABLETS TWICE DAILY, # 360 tabs, eRx: [facility], TAKE 2TABLETS TWICE DAILY Start Date: 02/01/15 Status: Orderedomeprazole 40 mg oral delayed release capsule 1 caps, Oral, Daily, # 90 caps, 3 Refill(s), [facility], [facility] caps Oral Daily Start Date: 05/09/14 Status: Orderedone touch ultra blue test strip one touch ultra blue test strip, See Instructions, test blood sugars fasting and 2 hrs pc on 3 days per week E11.9, # 100 Each, 10 Refill(s), Pharmacy: [facility], test blood sugars fasting and 2 hrs pc on 3 days per week E11.9 Start Date: 01/31/15 Status: Orderedtamsulosin 0.4 mg oral capsule 0.4 mg 1 caps, Oral, Daily, # 30 caps, 5 Refill(s), Pharmacy: [facility], 1 caps Oral Daily [...] 22, [address] Martin showeddiverticulitis mild.2in [id number] Social History Social History Type Response Smoking [...] up [facility]uez [facility]. I want to see [...]
--- OUTSIDE RECORDS SUMMARY | 2017-06-22 19:33 | External Medical Summary | Referral Summary ---
:1950 Author Organization [facility] Address [address] [place] [address] Care Team Providers Name Role Phone Kennedy Salazar V Primary Care Physician Encounter VC Date(s): 08/02/14 - 08/02/14 [facility] [address] [place] [address]- [place] Discharge Diagnosis: BPH w urinary obs/LUTS Discharge Diagnosis: Nocturia Discharge Disposition: 01-Home or Self Care Attending Physician: Seven Baldwin MD Admitting Physician: Seven Baldwin MD Vital Signs No data available for [...] DAILY, # 16 unknown unit, 2 Refill(s), [facility]Rx:[facility], USE ONE SPRAY(S) IN EACH [...] TABLETS TWICE DAILY, # 360 tabs, eRx: [facility], TAKE 2TABLETS TWICE DAILY Start Date: 02/01/15 Status: Orderedomeprazole 40 mg oral delayed release capsule 1 caps, Oral, Daily, # 90 caps, 3 Refill(s), [facility], 1 caps Oral Daily Start Date: 05/09/14 Status: Orderedone touch ultra blue test strip one touch ultra blue test strip, See Instructions, test blood sugars fasting and 2 hrs pc on 3 days per week E11.9, # 100 Each, 10 Refill(s), Pharmacy: [facility], test blood sugars fasting and 2 hrs pc on 3 days per week E11.9 Start Date: 01/31/15 Status: Orderedtamsulosin 0.4 mg oral capsule 0.4 mg 1 caps, Oral, Daily, # 30 caps, 5 Refill(s), Pharmacy: [facility], 1 caps Oral Daily Start Date: 09/20/14 Status: Ordered Results No data available for this section Immunizations Vaccine Date Refusal Reason influenza virus vaccine, live 11/23/12 influenza virus vaccine, live 11/25/11 zoster vaccine live 12/17/12 Procedures Procedure Date Related Diagnosis Body Site Colonoscopy1 01/21/08 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 Repeat colonoscopy in [address].- CT done February 22, [address] Martin showeddiverticulitis mild.2in [id number] Social History Social History Type Response Smoking Status Former smoker; Type: Cigarettes1 1quit 03/20/2010 Assessment and Plan Extracted from: Title: Ambulatory Patient Education Author: Seven Baldwin MD Date: Family Medicine Urinary Frequency The number of times a normal person urinates depends upon how much liquid they take in and how much liquid they are losing. If the temperature is hot and there is high humidity then the person will swea t more and usually breathe a little more frequently. These factors decrease the amount of frequency of urination that would be considered normal. The amount you drink is easily determined, but the amount of fluid lost is sometimes more difficult to calculate. Fluid is lost in two ways: Sensible fluid loss is usually measured by the amount of urine that you get rid of. Losses of fluid can also occur with diarrhea. Insensible fluid loss is more difficult to measure. It is caused by evaporation. Insensible loss of fluid occurs through breathing and sweating. It usually ranges from a little less than a quart to a little more than a quart of fluid a day. In normal temperatures and activity levels the average person may urinate 4 to 7 times in a 24-hour period. Needing to urinate more often than that could indicate a problem. If one urinates 4 to 7 times in 24 hours and has large volumes each time, that could indicate a different problem from one who urinates 4 to 7 times a day and has small volumes. The time of urinating is also an important. Most uri nating should be done during the waking hours. Getting up at night to urinate frequently can indicate some problems. CAUSES The bladder is the organ in your lower abdomen that holds urine. Like a balloon , it swells some as it fills up. Your nerves sense this and tell you it is time to head for the bathroom. There are a numbe r of reasons that you might feel the need to urinate more often than usual. They include: Urinary tract infection. This is usually associated with other signs such as burning when you urinate. In men, problems with the prostate (a walnut-size gland that is located near the tube that carries urine out of your body). There are two reasons why the prostate can cause an increased frequency of urination: An enlarged prostate that does not let the bladder empty well. If the bladder only half empties when you urinate then it only has half the capacity to fill before you have to urinate again. The nerves in the bladder become more hypersensitive with an increased size of the prostate even if the bladder empties completely. . Obesity. Excess weight is more likely to cause a problem for women more than for men. Bladder stones or other bladder problems. Caffeine. Alcohol. Medications. For example, drugs that help the body get rid of extra fluid (diuretics ) increase urine production. Some other medicines must be taken with lots of fluids. Muscle or nerve weakness. This might be the result of a spinal cord injury , a stroke, multiple sclerosis or Parkinson's disease. Long-standing diabetes can decrease the sensation of the bladder. This loss of sensation makes it harder to sense the bladder needs to be emptied. Over a period of years the bladder is stretched ou t by constant overfilling. This weakens the bladder muscles so that the bladder does not empty well and has less capacity to fill with new urine. Interstitial cystitis (also called painful bladder syndrome). This condition develops because the tissues that line the insider of the bladder are inflamed (inflammation is the body's way of reacti ng to injury or infection). It causes pain and frequent urination. It occurs in women more often than in men. DIAGNOSIS To decide what might be causing your urinary frequency, your healthcare provider will probably: Ask about symptoms you have noticed. Ask about your overall health. This will include questions about any medications you are taking. Do a physical examination. Order some tests. These might include: A blood test to check for diabetes or other health issues that could be contributing to the problem. Urine testing. This could measure the flow of urine and the pressure on the bladder. A test of your neurological system (the brain, spinal cord and nerves). This is the system that senses the need to urinate. A bladder test to check whether it is emptying completely when you urinate. Cytoscopy. This test uses a thin tube with a tiny camera on it. It offers a look inside your urethra and bladder to see if there are problems. Imaging tests. You might be given a contrast dye and then asked to urinate. X-rays are taken to see how your bladder is working. TREATMENT It is important for you to be evaluated to determine if the amount or frequency that you have is unusual or abnormal. If it is found to be abnormal the cause should be determined and this can usually be found out easily. Depending upon the cause treatment could include medication , stimulation of the nerves, or surgery. There are not too many things that you can do as an individual to change your urinary frequency. It is important that you balance the amount of fluid intake needed to compensate for your activity and th e temperature. Medical problems will be diagnosed and taken care of by your physician. There is no particular bladder training such as Kegel's exercises that you can do to help urinary frequency. This i s an exercise this is usually done for people who have leaking of urine when they laugh cough or sneeze. HOME CARE INSTRUCTIONS Take any medications your healthcare provider prescribed or suggested. Follow the directions carefully. Practice any lifestyle changes that are recommended. These might include: Drinking less fluid or drinking at different times of the day. If you need to urinate often during the night, for example, you may need to stop drinking fluids early in the evening. Cutting down on caffeine or alcohol. They both can make you need to urinate more often than normal. Caffeine is found in coffee, tea and sodas. Losing weight, if that is recommended. Keep a journal or a log. You might be asked to record how much you drink and when and when you feel the need to urinate. This will also help evaluate how well the treatment provided by your physician is working. SEEK MEDICAL CARE IF: Your need to urinate often gets worse. You feel increased pain or irritation when you urinate. You notice blood in your urine. You have questions about any medications that your healthcare provider recommended. You notice blood, pus or swelling at the site of any test or treatment procedure. You develop a fever of more than 100.5 F (38.1 C). SEEK IMMEDIATE MEDICAL CARE IF: You develop a fever of more than 102.0 F (38.9 C). Document Released: 11/29/2009 Document Revised: 04/26/2012 Document Reviewed: 11/29/2009 [facility] Patient Information 2014 [email or web address]. No follow up information was provided. Extracted from: Title: Office Visit Note Author: Seven Baldwin MD Date: 08/02/14 Assessment/Plan 1.BPH w urinary obs/LUTS 2.Nocturia Transrectal ultrasound of the prostate showed a gland measuring only 25.8 mL. No suspicious hypoechoic areas. seminal vesicles unremarkable. Discussion with him about all findings. Around 15 minutes spent in discussion. I don't think that he has BPH. Possibly a form of mild bladder instability. And certainly intermittent glucosuria could account for the nocturia. Patient agreed keep me posted. I told him he could take a very low dose of antimuscarinic medication such as half a pill of Toviaz daily at bedtime but he does not wa nt to do that. He agreed to return to my office for follow-up check in 3-4 months time.
--- OUTSIDE RECORDS SUMMARY | 2017-06-22 19:33 | External Medical Summary | Referral Summary ---
:1950 Author Organization [facility] Address [address] [place] [address] Care Team Providers Name Role Phone Kennedy Salazar V Primary Care Physician Encounter [facility] [id number] Date(s): 05/29/16 - 05/29/16 [facility] [address] [place] [address]- [place] Discharge Disposition: 01-Home or [...] DAILY, # 1 Each, 11 Refill(s), Pharmacy: [facility] Start Date: 05/22/15 Status: OrderedGlucometer (DME) DME Item Using One Touch Ultra to check BGM 1 time daily. 250.00, See Instructions, # 1 Each, 0 Refill(s), Supply Start Date: 08/02/13 Status: OrderedGlucometer strips (DME) DME Item PT USES ONE TOUCH ULTRA TEST STRIPS TO CHECK BS BID FOR DX E11.9, See Instructions, # 100 Each, 0 Refill(s), [id number], PT USES ONE TOUCH ULTRA TEST STRIPS TO CHECK BS BID FOR DX E11.9, Supply Start Date: 01/29/16 Status: Orderedlisinopril 40 mg oral tablet 40 mg 1 tabs, Oral, Daily, # 30 tabs, 0 Refill(s) Start Date: 05/08/16 Status: OrderedmetFORMIN 500 mg oral tablet See Instructions, TAKE 2 TABLETS TWICE DAILY, # 360 tabs, 1 Refill(s), eRx: [facility], TAKE 2 TABLETS TWICE DAILY Start Date: 11/19/15 Status: Orderedomeprazole 40 mg oral delayed release capsule See Instructions, TAKE 1 CAPSULE BY MOUTH EVERY DAY, # 90 caps, eRx: [id number], TAKE 1 CAPSULE BY MOUTH EVERY DAY Start Date: 05/19/16 Status: Orderedone touch ultra blue test strip one touch ultra blue test strip, See Instructions, test blood sugars fasting and 2 hrs pc on 3 days per week E11.9, # 100 Each, 10 Refill(s), Pharmacy: [facility], test blood sugars fasting and 2 hrs pc on 3 days per week E11.9 Start Date: 01/31/15 Status: OrderedONE TOUCH ULTRA BLUE TESTST(NEW)100 See Instructions, TEST BLOOD SUGARS TWICE DAILY, # 100 strip, 1 Refill(s), eRx: [id number], TEST BLOOD SUGARS TWICE DAILY Start Date: 04/14/16 Status: OrderedoxyCODONE Oral, Shoulder surgery 07/30/15, 0 Refill(s) Start Date: 09/21/15 Status: OrderedPradaxa 150 mg oral capsule 150 mg 1 caps, Oral, BID, # 60 caps, 0 Refill(s) Start Date: 05/22/15 Status: Orderedtamsulosin 0.4 mg oral capsule 0.4 mg 1 caps, Oral, Daily, # 90 caps, 3 Refill(s), Pharmacy: [facility], 1 caps Oral [...] 22, [address] Martin showeddiverticulitis mild.2in [id number] Social History Social History Type Response Smoking Status Former smoker; Type: Cigarettes1 1quit 03/20/2010 Assessment and Plan No data available for this section
--- OUTSIDE RECORDS SUMMARY | 2017-06-22 19:33 | External Medical Summary | Referral Summary ---
:1950 Author Care Team Providers Name Role Phone Moises Mccoy Primary Care Physician Encounter [facility] Date(s): 06/06/14 - 06/06/14 [facility] [address] [place] [address]- Discharge Diagnosis: Male pelvic pain Discharge Diagnosis: Urinary frequency Discharge Diagnosis: Constipation Discharge Disposition: Home or Self Care Attending Physician: Moises Mccoy MD Admitting Physician: Moises Mccoy MD Vital Signs Most recent to oldest [Reference Range]: 1 Temperature Tympanic [36.6-38.1 degC] 36.1 degC *LOW* (06/06/14 1:21 PM) Peripheral Pulse Rate [60-100 bpm] 84 bpm (06/06/14 1:21 PM) Respiratory Rate [14-20 br/min] 16 br/min (06/06/14 1:21 PM) Blood Pressure [90-140/60-90 mmHg] 128/68 mmHg (06/06/14 1:21 PM) Most recent to oldest [Reference Range]: 1 SpO2 96 % (06/06/14 1:21 PM) Problem List Condition Effective Dates Status Health Status Informant Allergic rhinitis Active (disorder)(Confirmed) Allergic rhinitis(Confirmed) Active Arthralgia of the pelvic region and Active thigh (finding)(Confirmed) Benign essential hypertension Active (disorder)(Confirmed) Chronic obstructive pulmonary disease Active (COPD)(Confirmed) CAD (coronary artery Active disease)(Confirmed) Diabetes(Confirmed) Active Esophageal reflux(Confirmed) Active Gastroesophageal reflux disease Active (disorder)(Confirmed) Hip pain(Confirmed) Active Hypertension(Confirmed) Active Paroxysmal atrial Active fibrillation(Confirmed) Pure hypercholesterolemia Active (disorder)(Confirmed) Pure hypercholesterolemia(Confirmed) Active Allergies, Adverse Reactions, Alerts No Known Medication Allergies Medications aspirin 325 mg, Oral, Daily, 0 Refill(s) Start Date: 08/02/13 Status: Orderedatorvastatin 40 mg oral tablet 1 tabs, Oral, Bedtime (once a day), 0 Refill(s) Start Date: 08/02/13 Status: OrderedCipro 500 mg oral tablet 1 tabs, Oral, q12hr, X 30 days, # 60 tabs, 1 Refill(s), Pharmacy: [facility], 1 tabs Oral q12hr,x30 days Start Date: 05/03/14 Stop Date: 07/02/14 Status: Orderedclopidogrel 75 mg oral tablet 1 tabs, Oral, Daily, 0 Refill(s) Start Date: 08/02/13 Status: OrderedFlonase 50 mcg/inh nasal spray 1 sprays, Nasal, BID, # 16 g, 3 Refill(s), Pharmacy: [facility] Start Date: 02/03/14 Stop Date: 06/03/14 Status: OrderedGlucometer (DME) DME Item Using One Touch Ultra to check BGM 1 time daily. 250.00, See Instructions, # 1 Each, 0 Refill(s), Supply Special Instructions: Using One Touch Ultra to check BGM 1 time daily. 250.00 Start Date: 08/02/13 Status: Orderedglucosamine 1,500 mg, Oral, Daily, 0 Refill(s) Start Date: 08/02/13 Status: Orderedlisinopril 10 mg oral tablet 1 tabs, Oral, Daily, 0 Refill(s) Start Date: 08/02/13 Status: OrderedmetFORMIN 500 mg oral tablet 2 tabs, Oral, BID, # 360 tabs, 3 Refill(s), Pharmacy: [facility], 2 tabs Oral BID Start Date: 05/09/14 Status: OrderedNitrostat 0.4 mg sublingual tablet 1 tabs, SubLingual, q5min, as needed for chest pain, # 100 tabs, 0 Refill(s) Start Date: 08/02/13 Status: OrderedNorco 10 mg-325 mg oral tablet 1 tabs, Oral, BID, as needed for pain, X 30 days, # 60 tabs, 0 Refill(s) Start Date: 06/06/14 Stop Date: 07/06/14 Status: Orderedomeprazole 40 mg oral delayed release capsule 1 caps, Oral, Daily, # 90 caps, 3 Refill(s), Pharmacy: [facility], 1 caps Oral Daily Start Date: 05/09/14 Status: OrderedONE TOUCH ULTRA BLUE TEST STP See Instructions, TEST BLOOD SUGAR FASTING AND TWO HOURS AFTER MEALS ON 3 DAYS OF THE WEEK, # 100 strip, [facility], TEST BLOOD SUGAR FASTING AND TWO HOURS AFTER MEALS ON 3 DAYS OF THEWEEK Special Instructions: TEST BLOOD SUGAR FASTING AND TWO HOURS AFTER MEALS ON 3 DAYS OF THE WEEK Start Date: 12/27/13 Status: OrderedONE TOUCH ULTRA BLUE TEST STRIPS ONE TOUCH ULTRA BLUE TEST STRIPS, See Instructions, Test blood sugar fasting and two hours after meals on three days of the week. Dx: 250.00, # 150 Each, 3 Refill(s), Pharmacy: [facility],Test blood sugar fasting and two hours after meal... Special Instructions: Test blood sugar fasting and two hours after meals on three days of the week. Dx: 250.00 Start Date: 06/06/14 Status: OrderedONE TOUGH ULTRA BLUE TEST STRIPS ONE TOUGH ULTRA BLUE TEST STRIPS, See Instructions, TEST BLOOD SUGARS DAILY DX. 250.00, # 90 Each, 3 Refill(s), Pharmacy: [facility], TEST BLOOD SUGARS DAILY; DX. 250.00 Special Instructions: TEST BLOOD SUGARS DAILY DX. 250.00 Start Date: 06/06/14 Status: Orderedtamsulosin 0.4 mg oral capsule See Instructions, TAKE 1 CAPSULE EVERY DAY, # 90 caps, 2 Refill(s), eRx: [facility], TAKE 1 CAPSULE EVERY DAY Special Instructions: TAKE 1 CAPSULE EVERY DAY Start Date: 04/18/14 Status: Ordered Results No data available for [...] 22, [address] Martin showeddiverticulitis mild.2in [id number] Social History Social History Type Response Smoking Status Former smoker Assessment and Plan Extracted from: Title: Office Visit Note Author: Moises Mccoy MD Date: 06/06/14 Assessment/Plan Constipation Male pelvic pain Urinary frequency Plan: I recommend that she discontinue Cipro at this point. Doesn't appear to be prostatitis. I'm going to have you see Dr. Baldwin. Regarding the constipation I am going to decrease her dose of Joanna lax to one third of a cup or cap full. Follow-up in 2 months for diabetes. Orders: HYDROcodone-acetaminophen, 1 tabs, Oral, BID, as needed for pain, X 30 days, # 60 tabs, 0 Refill(s) Misc Medication, ONE TOUCH ULTRA BLUE TEST STRIPS, See Instructions, Test blood sugar fasting and two hours after meals on three days of the week. Dx: 250.00, # 150 Each, 3 Refill(s), Pharmacy: [facility], Test blood sugar fasting and two hours after meal... Misc Medication, ONE TOUGH ULTRA BLUE TEST STRIPS, See Instructions, TEST BLOOD SUGARS DAILY DX. 250.00, # 90 Each, 3 Refill(s), Pharmacy: [facility], TEST BLOOD SUGARS DAILY; DX. 250.00
--- OUTSIDE RECORDS SUMMARY | 2017-06-22 19:33 | External Medical Summary | Referral Summary ---
:1950 Author Organization [facility] [place] [address] Care Team Providers Name Role Phone Kennedy Salazar V Primary Care Physician Encounter [facility] Date(s): 12/31/15 - 12/31/15 [facility] [place] [address]- Discharge Diagnosis: CAD (coronary artery disease) Discharge Diagnosis: Type 2 diabetes mellitus, controlled Discharge Diagnosis: Benign essential hypertension Discharge Diagnosis: Gastroesophageal reflux disease Discharge Diagnosis: Hypercholesteremia Discharge Disposition: 01-Home or Self Care Attending Physician: Kennedy Salazar MD Admitting Physician: Kennedy Salazar MD Vital Signs Most recent to oldest [Reference Range]: 1 Temperature Tympanic [36.6-38.1 degC] 36.4 degC *LOW* (12/31/15 10:27 AM) Peripheral Pulse Rate [60-100 bpm] 74 bpm (12/31/15 10:27 AM) Blood Pressure [90-140/60-90 mmHg] 150/84 mmHg *HI* (12/31/15 10:27 AM) SpO2 98 % (12/31/15 10:27 AM) Problem List Condition Effective Dates Status [...] DAILY, # 1 Each, 11 Refill(s), [facility] Start Date: 05/22/15 Status: OrderedGlucometer (DME) DME Item Using One Touch Ultra to check BGM 1 time daily. 250.00, See Instructions, # 1 Each, 0 Refill(s), Supply Start Date: 08/02/13 Status: Orderedlisinopril 10 mg oral tablet 1 tabs, Oral, Daily, 0 Refill(s) Start Date: 08/02/13 Status: OrderedmetFORMIN 500 mg oral tablet See Instructions, TAKE 2 TABLETS TWICE DAILY, # 360 tabs, 1 Refill(s), eRx: [facility], TAKE 2 TABLETS TWICE DAILY Start Date: 11/19/15 Status: Orderedomeprazole 40 mg oral delayed release capsule 40 mg 1 caps, Oral, Daily, # 90 caps, 3 Refill(s), Pharmacy: [facility], 1 caps Oral Daily Start Date: 04/09/15 Status: Orderedone touch ultra blue test strip one touch ultra blue test strip, See Instructions, test blood sugars fasting and 2 hrs pc on 3 days per week E11.9, # 100 Each, 10 Refill(s), Pharm[facility], test blood sugars fasting and 2 hrs pc on 3 days per week E11.9 Start Date: 01/31/15 Status: OrderedoxyCODONE Oral, Shoulder surgery 07/30/15, 0 Refill(s) Start Date: 09/21/15 Status: OrderedPradaxa 150 mg oral capsule 150 mg 1 caps, Oral, BID, # 60 caps, 0 Refill(s) Start Date: 05/22/15 Status: Orderedtamsulosin 0.4 mg oral capsule 0.4 mg 1 caps, Oral, Daily, # 90 caps, 3 Refill(s), Pharmacy: [facility], 1 caps Oral Daily Start Date: 04/09/15 Status: Ordered Results No data available for this section Immunizations Vaccine Date Refusal Reason influenza virus vaccine, live 11/23/12 influenza virus vaccine, live 11/25/11 pneumococcal 13-valent conjugate vaccine 12/31/15 zoster vaccine live 02/02/12 Procedures Procedure Date Related Diagnosis Body Site Colonoscopy1 01/21/08 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 Repeat colonoscopy in [address].- CT done February 22, [address] Martin showeddiverticulitis mild.2in [id number] Social History Social History Type Response Smoking Status Former smoker; Type: Cigarettes1 1quit 03/20/2010 Assessment and Plan Extracted from: Title: CDM Author: Kennedy Salazar MD Date: 12/31/15 Impression and Plan Diagnosis Benign essential hypertension (RTC18-UT I10, Discharge, Medical). CAD (coronary artery disease) (OAO65-NN I25.10, Discharge, Medical). Type 2 diabetes mellitus, controlled (PMA71-SR E11.9, Discharge, Medical). Gastroesophageal reflux disease (EER11-GF K21.9, Discharge, Medical). Hypercholesteremia (OVQ71-ST E78.00, Discharge, Medical). Orders Orders (Selected) Outpatient Orders Future (On Hold) Albumin/Creatinine Ratio, Urine: BMP: Fasting Lipid Profile: Hgb A1c: Prescriptions Prescribed metFORMIN 500 mg oral tablet: See Instructions, TAKE 2 TABLETS TWICE DAILY, 360 tabs, 1 Refill(s).
--- OUTSIDE RECORDS SUMMARY | 2017-06-22 19:34 | External Medical Summary | Referral Summary ---
:1950 Author Organization [facility] [place] [facility] [place] [address] Care Team Providers Name Role Phone Kennedy Salazar V Primary Care Physician Encounter [facility] [id number] Date(s): 09/21/15 - 09/21/15 [facility] [place] [facility] [place] [address] [place] Discharge Diagnosis: Type 2 diabetes mellitus, controlled Discharge Diagnosis: Pure hypercholesterolemia Discharge Diagnosis: Gastroesophageal reflux disease Discharge Diagnosis: Benign essential hypertension Discharge Diagnosis: CAD (coronary artery disease) Discharge Disposition: 01-Home or Self Care Attending Physician: Kennedy Salazar MD Admitting Physician: Kennedy Salazar MD Vital Signs Most recent to oldest [Reference Range]: 1 Temperature Tympanic [36.6-38.1 degC] 36.3 degC *LOW* (09/21/15 9:35 AM) Apical Heart Rate [60-100 bpm] 95 bpm (09/21/15 9:35 AM) Blood Pressure [90-140/60-90 mmHg] 154/80 mmHg *HI* (09/21/15 9:35 AM) SpO2 97 % (09/21/15 9:35 AM) Problem List Condition Effective Dates Status [...] DAILY, # 1 Each, 11 Refill(s), Pharmacy: [id number] Start Date: 05/22/15 Status: OrderedGlucometer [...] days, # 360 tabs, 1 Refill(s), Pharmacy: [facility], 2 tabs Oral BID,x90 days Start Date: 04/09/15 Stop Date: 10/06/15 Status: Orderedomeprazole 40 mg oral delayed release capsule 40 mg 1 caps, Oral, Daily, # 90 caps, 3 Refill(s), Pharmacy: [facility], 1 caps Oral Daily Start Date: 04/09/15 Status: Orderedone touch ultra blue test strip one touch ultra blue test strip, See Instructions, test blood sugars fasting and 2 hrs pc on 3 days per week E11.9, # 100 Each, 10 Refill(s), Pharmacy: [facility], test blood sugars fasting and [...] 90 caps, 3 Refill(s), Pharmacy: [facility], 1 caps Oral Daily Start Date: 04/09/15 Status: Ordered Results Chemistry Most recent to oldest [Reference Range]: 1 Sodium Lvl [135-144 mEq/L] 139 mEq/L (09/21/15 10:08 AM) Potassium Lvl [3.5-5.2 mEq/L] 4.2 mEq/L (09/21/15 10:08 AM) Chloride [99-111 mEq/L] 109 mEq/L (09/21/15 10:08 AM) CO2 [23-31 mEq/L] 21 mEq/L *LOW* (09/21/15 10:08 AM) AGAP [3-20] 9 (09/21/15 10:08 AM) BUN [8-26 mg/dL] 15 mg/dL (09/21/15 10:08 AM) Glucose Lvl [70-99 mg/dL] 230 mg/dL *HI* (09/21/15 10:08 AM) Creatinine Lvl [0.72-1.25 mg/dL] 1.27 mg/dL *HI* (09/21/15 10:08 AM) eGFR [>60 mL/min] 56 mL/min 1 *ABN* (09/21/15 10:08 AM) Calcium Lvl [8.9-10.5 mg/dL] 9.7 mg/dL (09/21/15 10:08 AM) Hgb A1c [4.1-5.6 %] 6.7 % *HI* (09/21/15 10:08 AM) eAvg Glucose 145.6 mg/dL (09/21/15 10:08 AM) 1Result Comment: Multiply eGFR results by [...] 22, [address] Martin showeddiverticulitis mild.2in [id number] Social History Social History Type Response Smoking Status Former smoker; Type: Cigarettes1 1quit 03/20/2010 Assessment and Plan Extracted from: Title: Ambulatory Patient Education Author: Kennedy Salazar MD Date: Home Health Care Diabetes and Exercise Exercising regularly is important. [...] ACTIVITY PLAN Choose an activity that you enjoy, and set realistic goals. To exercise safely , you should begin practicing any new physical activity slowly, and gradually increase the intensity of the exercise over ti me. Your health care provider or clinical educator can help create an activity plan that works for you. General recommendations include: Encouraging children to engage in at least 60 minutes of physical activity each day. Stretching and performing strength training exercises, such as yoga or weight lifting, at least 2 times per week. Performing a total of at least 150 minutes of moderate-intensity exercise each week, such as brisk walking or water aerobics. Exercising at least 3 days per week, making sure you allow no more than 2 consecutive days to pass without exercising. Avoiding long periods of inactivity (90 minutes or more). When you have to spend an extended period of time sitting down, take frequent breaks to walk or stretch. RECOMMENDATIONS FOR EXERCISING WITH TYPE 1 OR [...] type of activity is better than none. This information is not intended to replace advice given to you by your health care provider. Make sure you discuss any questions you have with your health care provider. Document Released: 04/24/2004 Document Revised: 02/23/2015 Document Reviewed: 07/12/2013 [employer] Patient Information 2016 [employer]. No follow up information was provided. Extracted from: Title: 4 Month CDM DM HTN Author: Kennedy Salazar MD Date: 09/21/15 Impression and Plan Diagnosis Benign essential hypertension ([id number] I10, Discharge, Medical). CAD (coronary artery disease) (TSJ10-KC I25.10, Discharge, Medical). Gastroesophageal reflux disease (CQW07-IH K21.9, Discharge, Medical). Pure hypercholesterolemia (EDY81-YA E78.0, Discharge, Medical). Type 2 diabetes mellitus, controlled (DAF33-XF E11.9, Discharge, Medical). Orders Orders (Selected) Outpatient Orders Future (On Hold) Hgb A1c: .
--- OUTSIDE RECORDS SUMMARY | 2017-06-22 19:34 | External Medical Summary | Referral Summary ---
:1950 Author Organization [facility] [place] [facility] [place] [address] Care Team Providers Name Role Phone Kennedy Salazar V Primary Care Physician Encounter [facility] Date(s): 05/22/15 - 05/22/15 [facility] [place] [facility] [place] [address] [place] Discharge Diagnosis: Chronic obstructive pulmonary disease (COPD) Discharge Diagnosis: Left shoulder pain Discharge Diagnosis: Gastroesophageal reflux disease Discharge Diagnosis: Seborrheic keratoses Discharge Diagnosis: Type 2 diabetes mellitus, controlled Discharge Diagnosis: Pure hypercholesterolemia Discharge Diagnosis: Benign essential hypertension Discharge Diagnosis: CAD (coronary artery disease) Discharge Disposition: 01-Home or Self Care Attending Physician: Kennedy Salazar MD Admitting Physician: Kennedy Salazar MD Vital Signs Most recent to oldest [Reference Range]: 1 Peripheral Pulse Rate [60-100 bpm] 67 bpm (05/22/15 10:28 AM) Blood Pressure [90-140/60-90 mmHg] 120/80 mmHg (05/22/15 10:28 AM) SpO2 97 % (05/22/15 10:28 AM) Problem List Condition Effective Dates Status [...] day), 0 Refill(s) Start Date: 08/02/13 Status: Orderedfluticasone 50 mcg/inh nasal spray See [...] days, # 360 tabs, 1 Refill(s), Pharmacy: [facility], 2 tabs Oral BID,x90 days Start Date: 04/09/15 Stop Date: 10/06/15 Status: Orderedomeprazole 40 mg oral delayed release capsule 40 mg 1 caps, Oral, Daily, # 90 caps, 3 Refill(s), Pharmacy: [facility], 1 caps Oral Daily Start Date: 04/09/15 Status: Orderedone touch ultra blue test strip one touch ultra blue test strip, See Instructions, test blood sugars fasting and 2 hrs pc on 3 days per week E11.9, # 100 Each, 10 Refill(s), Pharmacy: [facility], test blood sugars fasting and 2 hrs pc on 3 days per week E11.9 Start Date: 01/31/15 Status: OrderedPradaxa 150 mg oral capsule 150 mg 1 caps, Oral, BID, # 60 caps, 0 Refill(s) Start Date: 05/22/15 Status: Orderedtamsulosin 0.4 mg oral capsule 0.4 mg 1 caps, Oral, Daily, # 90 caps, 3 Refill(s), Pharmacy: [facility], 1 caps Oral Daily [...] 22, [address] Martin showeddiverticulitis mild.2in [id number] Social History Social History Type Response Smoking Status Former smoker; Type: Cigarettes1 1quit 03/20/2010 Assessment and Plan Extracted from: Title: Ambulatory Patient Education Author: Kennedy Salazar MD Date: Family Medicine Shoulder Pain The shoulder is the joint that connects your arms to your body. The bones that form the shoulder joint include the upper arm bone (humerus), the shoulder blade (scapula), and the collarbone (clavicle). The top of the humerus is shaped like a ball and fits into a rather flat socket on the scapula (glenoid cavity). A combination of muscles and strong, fibrous tissues that connect muscles to bones (tendo ns) support your shoulder joint and hold the ball in the socket. Small, fluid- filled sacs (bursae) are located in different areas of the joint. They act as cushions between the bones and the overlying s oft tissues and help reduce friction between the gliding tendons and the bone as you move your arm. Your shoulder joint allows a wide range of motion in your arm. This range of motion allows you to do t hings like scratch your back or throw a ball. However, this range of motion also makes your shoulder more prone to pain from overuse and injury. Causes of shoulder pain can originate from both injury and overuse and usually can be grouped in the following four categories: Redness, swelling, and pain (inflammation) of the tendon (tendinitis) or the bursae (bursitis). Instability, such as a dislocation of the joint. Inflammation of the joint (arthritis). Broken bone (fracture). HOME CARE INSTRUCTIONS Apply ice to the sore area. Put ice in a plastic bag. Place a towel between your skin and the bag. Leave the ice on for 15-20 minutes, 3-4 times per day for the first 2 days, or as directed by your health care provider. Stop using cold packs if they do not help with the pain. If you have a shoulder sling or immobilizer, wear it as long as your caregiver instructs. Only remove it to shower or bathe. Move your arm as little as possible, but keep your hand moving to prevent swelling. Squeeze a soft ball or foam pad as much as possible to help prevent swelling. Only take mgzu-[id number] or prescription medicines for pain, discomfort, or fever as directed by your caregiver. SEEK MEDICAL CARE IF: Your shoulder pain increases, or new pain develops in your arm, hand, or fingers. Your hand or fingers become cold and numb. Your pain is not relieved with medicines. SEEK IMMEDIATE MEDICAL CARE IF: Your arm, hand, or fingers are numb or tingling. Your arm, hand, or fingers are significantly swollen or turn white or blue. MAKE SURE YOU: Understand these instructions. Will watch your condition. Will get help right away if you are not doing well or get worse. This information is not intended to replace advice given to you by your health care provider. Make sure you discuss any questions you have with your health care provider. Document Released: 11/12/2005 Document Revised: 11/21/2014 Document Reviewed: 01/17/2012 [facility] Patient Information 2015 [employer]. No follow up information was provided. Extracted from: Title: CRMMP Author: Kennedy Salazar MD Date: 05/22/15 Assessment/Plan Benign essential hypertension CAD (coronary artery disease) Chronic obstructive pulmonary disease (COPD) Gastroesophageal reflux disease Pure hypercholesterolemia Seborrheic keratoses Type 2 diabetes mellitus, controlled Orders: fluticasone nasal, See Instructions, USE ONE SPRAY(S) IN EACH NOSTRIL TWICE DAILY, # 1 Each, 11 Refill(s), Pharmacy: [facility] Overall he has fairly stable. His left shoulder pain is most likely a rotator cuff injury. Refer to Dr. Burris for evaluation and consideration of surgical repair if needed. Continue current medications. Follow-up in about 4 months for diabetes care with labs anticipated at that time to include A1c and BMP.
--- OUTSIDE RECORDS SUMMARY | 2017-06-22 19:34 | External Medical Summary | Referral Summary ---
:1950 Author Organization [facility] Address [address] [place] [address] Care Team Providers Name Role Phone Kennedy Salazar V Primary Care Physician Encounter [facility] Date(s): 06/27/14 - 06/27/14 [facility] [address] [place] [address] [place] Discharge Diagnosis: Nocturia Discharge [...] DAILY, # 16 unknown unit, 2 Refill(s), [facility], USE ONE SPRAY(S) IN EACH [...] Daily, # 90 caps, 3 Refill(s), Pharmacy: [facility], 1 caps Oral Daily Start Date: 05/09/14 Status: OrderedONE TOUCH ULTRA BLUE TEST STP See Instructions, TEST BLOOD SUGAR FASTING AND TWO HOURS AFTER MEALS ON 3 DAYS OF THE WEEK, # 100 strip, eRx: [facility], TEST BLOOD SUGAR FASTING AND TWO HOURS AFTER MEALS ON 3 DAYS OF THEWEEK Start Date: 12/27/13 Status: OrderedONE TOUCH ULTRA BLUE TEST STRIPS ONE TOUCH ULTRA BLUE TEST STRIPS, See Instructions, Test blood sugar fasting and two hours after meals on three days of the week. Dx: 250.00, # 150 Each, 3 Refill(s), Pharmacy: [facility],Test blood sugar fasting and two hours after meal... Start Date: 06/06/14 Status: OrderedONE TOUGH ULTRA BLUE TEST STRIPS ONE TOUGH ULTRA BLUE TEST STRIPS, See Instructions, Check blood sugar up to twice a day DX. 250.00, # 100 Each, 2 Refill(s), Pharmacy: [facility], Check blood sugar up to twice a day ; DX. 250.00 Start Date: 08/09/14 Status: Orderedtamsulosin 0.4 mg oral capsule 0.4 mg 1 caps, Oral, Daily, # 30 caps, 5 Refill(s), Pharmacy: [facility], 1 caps Oral [...] 22, [address] Martin showeddiverticulitis mild.2in [id number] Social History Social History Type Response Smoking [...] any discomfort you are experiencing: Only take [id number]-[id number] or prescription medicines as directed by your [...] 11/12/2005 Document Revised: 11/23/2013 Document Reviewed: 10/12/2013 [facility] Patient Information 2014 [facility]. No follow up information was provided. [...]
--- OUTSIDE RECORDS SUMMARY | 2017-06-22 19:34 | External Medical Summary | Referral Summary ---
:1950 Author Organization [facility] [place] [facility] [place] [address] Care Team Providers Name Role Phone Kennedy Salazar V Primary Care Physician Encounter [facility] Date(s): 08/07/14 - 08/07/14 [facility] [place] [facility] [place] [address] [place] Discharge Disposition: [...] DAILY, # 16 unknown unit, 2 Refill(s), eRx:[facility], USE ONE SPRAY(S) IN EACH [...] OF THE WEEK, # 100 strip, eRx: [facility], TEST BLOOD SUGAR FASTING AND TWO HOURS AFTER MEALS ON 3 DAYS OF THEWEEK Start Date: 12/27/13 Status: OrderedONE TOUCH ULTRA BLUE TEST STRIPS ONE TOUCH ULTRA BLUE TEST STRIPS, See Instructions, Test blood sugar fasting and two hours after meals on three days of the week. Dx: 250.00, # 150 Each, 3 Refill(s), Pharmacy: [facility]28,Test blood sugar fasting and two hours after meal... Start Date: 06/06/14 Status: OrderedONE TOUGH ULTRA BLUE TEST STRIPS ONE TOUGH ULTRA BLUE TEST STRIPS, See Instructions, Check blood sugar up to twice a day DX. 250.00, # 100 Each, 2 Refill(s), Pharmacy: [facility], Check blood sugar up to twice a day ; DX. 250.00 Start Date: 08/09/14 Status: Orderedtamsulosin 0.4 mg oral capsule 0.4 mg 1 caps, Oral, Daily, # 30 caps, 5 Refill(s), Pharmacy: [facility], 1 caps [...] 22, [address] Martin showeddiverticulitis mild.2in [id number] Social History Social History Type Response Smoking [...]
--- OUTSIDE RECORDS SUMMARY | 2017-06-22 19:34 | External Medical Summary | Referral Summary ---
:1950 Author [facility] Address [address] [place] [address] [place] [address] Care Team Providers Name Role Phone Kennedy Salazar V Primary Care Physician Encounter [facility] Date(s): 08/21/14 - 08/21/14 [facility] [place] [facility] [place] [address] [place] Discharge Disposition: 01-Home or Self Care Attending Physician: Moises Mccoy MD Admitting Physician: Moises Mccoy MD Vital Signs Most recent to oldest [Reference Range]: 1 Temperature Tympanic [36.6-38.1 degC] 35.8 degC *LOW* (08/21/14 11:29 AM) Peripheral Pulse Rate [60-100 bpm] 76 bpm (08/21/14 11:29 AM) Respiratory Rate [14-20 br/min] 20 br/min (08/21/14 11:29 AM) Blood Pressure [90-140/60-90 mmHg] 136/80 mmHg (08/21/14 11:29 AM) SpO2 98 % (08/21/14 11:29 AM) Problem List Condition Effective Dates Status [...] DAILY, # 16 unknown unit, 2 Refill(s), eRx:[facility], USE ONE SPRAY(S) IN EACH [...] TABLETS TWICE DAILY, # 360 tabs, eRx: [facility], TAKE 2TABLETS TWICE DAILY Start Date: 02/01/15 Status: Orderedomeprazole 40 mg oral delayed release capsule 1 caps, Oral, Daily, # 90 caps, 3 Refill(s), [facility], [facility] caps Oral Daily Start Date: 05/09/14 Status: Orderedone touch ultra blue test strip one touch ultra blue test strip, See Instructions, test blood sugars fasting and 2 hrs pc on 3 days per week E11.9, # 100 Each, 10 Refill(s), Pharmacy: [facility], test blood sugars fasting and 2 hrs pc on 3 days per week E11.9 Start Date: 01/31/15 Status: Orderedtamsulosin 0.4 mg oral capsule 0.4 mg 1 caps, Oral, Daily, # 30 caps, 5 Refill(s), Pharmacy: [facility], 1 caps Oral Daily [...] 22, [address] Martin showeddiverticulitis mild.2in [id number] Social History Social History Type Response Smoking Status Former smoker; Type: Cigarettes1 1quit 03/20/2010 Assessment and Plan Extracted from: Title: Office Visit Note Author: Moises Mccoy MD Date: 08/21/14 Assessment/Plan CAD (coronary artery disease) Chronic obstructive pulmonary disease (COPD) Paroxysmal atrial fibrillation Physical deconditioning Plan: Continue the Flonase for your nasal congestion. I want you to start walking 5 days a week. I would like you to get up to 30 minutes per episode. After walking for 2 weeks at 30 minutes per episode then I wants to increase by 10 minutes for 2 weeks. Continue increasing every 2 weeks until you are walking an hour a day. I wants to walk 5 days a week. If you're having any troubles wit h the schedule follow-up with me. We did the oximeter today and have you walk upstairs. And the lowest it dropped was 95 percent. You have a pulmonary function test on Thursday and will review that but for now I think your symptoms are mainly deconditioning. Follow-up in 3 months.
--- OUTSIDE RECORDS SUMMARY | 2017-06-22 19:34 | External Medical Summary | Referral Summary ---
:1950 Author Organization [facility] [place] [address] Care Team Providers Name Role Phone Kennedy Salazar V Primary Care Physician Encounter VC Date(s): 06/30/16 - 06/30/16 [facility] [place] [address] [place] Discharge Diagnosis: Type 2 diabetes mellitus, controlled Discharge Diagnosis: Gastroesophageal reflux disease Discharge Diagnosis: Chronic obstructive pulmonary disease (COPD) Discharge Diagnosis: Hx of smoking Discharge Diagnosis: CAD (coronary artery disease) Discharge Diagnosis: Pure hypercholesterolemia Discharge Diagnosis: Allergic rhinitis Discharge Diagnosis: Benign essential hypertension Discharge Disposition: 01-Home or Self Care Attending Physician: Kennedy Salazar MD Admitting Physician: Kennedy Salazar MD Vital Signs Most recent to oldest [Reference Range]: 1 Peripheral Pulse Rate [60-100 bpm] 89 bpm (06/30/16 8:19 AM) Respiratory Rate [14-20 br/min] 18 br/min (06/30/16 8:19 AM) Blood Pressure [90-140/60-90 mmHg] 120/64 mmHg (06/30/16 8:19 AM) SpO2 95 % (06/30/16 8:19 AM) Problem List Condition Effective Dates Status [...] DAILY, # 1 Each, 11 Refill(s), Pharmacy: [facility] Start Date: 06/02/16 Status: OrderedGlucometer (DME) DME Item Using One Touch Ultra to check BGM 1 time daily. 250.00, See Instructions, # 1 Each, 0 Refill(s), Supply Start Date: 08/02/13 Status: OrderedGlucometer strips (DME) DME Item PT USES ONE TOUCH ULTRA TEST STRIPS TO CHECK BS BID FOR DX E11.9, See Instructions, # 100 Each, 0 Refill(s), Pharmacy: [facility], PT USES ONE TOUCH ULTRA TEST STRIPS TO CHECK BS BID FOR DX E11.9, Supply Start Date: 01/29/16 Status: Orderedlisinopril 40 mg oral tablet 40 mg 1 tabs, Oral, Daily, # 30 tabs, 0 Refill(s) Start Date: 05/08/16 Status: OrderedmetFORMIN 500 mg oral tablet See Instructions, TAKE 2 TABLETS TWICE DAILY, # 360 tabs, 1 Refill(s), eRx: [facility], TAKE 2 TABLETS TWICE DAILY Start Date: 11/19/15 Status: Orderedomeprazole 40 mg oral delayed release capsule See Instructions, TAKE 1 CAPSULE BY MOUTH EVERY DAY, # 90 caps, eRx: [id number], TAKE 1 CAPSULE BY MOUTH EVERY DAY Start Date: 05/19/16 Status: Orderedone touch ultra blue test strip one touch ultra blue test strip, See Instructions, test blood sugars fasting and 2 hrs pc on 3 days per week E11.9, # 100 Each, 10 Refill(s), Pharmacy: [facility], test blood sugars fasting and 2 hrs pc on 3 days per week E11.9 Start Date: 01/31/15 Status: OrderedONE TOUCH ULTRA BLUE TESTST(NEW)100 See Instructions, TEST BLOOD SUGARS TWICE DAILY, # 100 strip, 1 Refill(s), eRx: [id number], TEST BLOOD SUGARS TWICE DAILY Start Date: 04/14/16 Status: OrderedPradaxa 150 mg oral capsule 150 mg 1 caps, Oral, BID, # 60 caps, 0 Refill(s) Start Date: 05/22/15 Status: Orderedtamsulosin 0.4 mg oral capsule See Instructions, TAKE 1 CAPSULE BY MOUTH EVERY DAY, # 90 caps, eRx: [id number], TAKE 1 CAPSULE BY MOUTH EVERY DAY [...] cuff surgery Tonsillectomy4 1Estimated date - cardiac [id number] diverticulosis. Repeat colonoscopy in 10 years.- CT done February 22, [address] Martin showeddiverticulitis mild.3in [id number] Social History Social History Type Response Smoking Status Former smoker; Type: Cigarettes1 1apprx. 40 years. Assessment and Plan Extracted from: Title: Ambulatory Patient Education Author: Kennedy Salazar MD Date: Emergency Medicine Gastroesophageal Reflux Disease, Adult Normally, food travels down the esophagus and stays in the stomach to be digested. However, when a person has gastroesophageal reflux disease (GERD), food and stomach acid move back up into the esophagu s. When this happens, the esophagus becomes sore and inflamed. Over time, GERD can create small holes (ulcers) in the lining of the esophagus. CAUSES This condition is caused by a problem with the muscle between the esophagus and the stomach (lower esophageal sphincter, or LES). Normally, the LES muscle closes after food passes through the esophagus to the stomach. When the LES is weakened or abnormal, it does not close properly, and that allows food and stomach acid to go back up into the esophagus. The LES can be weakened by certain dietary subst ances, medicines, and medical conditions, including: Tobacco use. . Having a hiatal hernia. Heavy alcohol use. Certain foods and beverages, such as coffee, chocolate, onions, and peppermint. RISK FACTORS This condition is more likely to develop in: People who have an increased body weight. People who have connective tissue disorders. People who use NSAID medicines. SYMPTOMS Symptoms of this condition include: Heartburn. Difficult or painful swallowing. The feeling of having a lump in the throat. Abitter taste in the mouth. Bad breath. Having a large amount of saliva. Having an upset or bloated stomach. Belching. Chest pain. Shortness of breath or wheezing. Ongoing (chronic) cough or a night-time cough. Wearing away of tooth enamel. Weight loss. Different conditions can cause chest pain. Make sure to see your health care provider if you experience chest pain. DIAGNOSIS Your health care provider will take a medical history and perform a physical exam. To determine if you have mild or severe GERD, your health care provider may also monitor how you respond to treatment. You may also have other tests, including: An endoscopy toexamine your stomach and esophagus with a small camera. A test thatmeasures the acidity level in your esophagus. A test thatmeasures how much pressure is on your esophagus. A barium swallow or modified barium swallow to show the shape, size, and functioning of your esophagus. TREATMENT The goal of treatment is to help relieve your symptoms and to prevent complications. Treatment for this condition may vary depending on how severe your symptoms are. Your health care provider may recommend: Changes to your diet. Medicine. Surgery. HOME CARE INSTRUCTIONS Diet Follow a diet as recommended by your health care provider. This may involve avoiding foods and drinks such as: Coffee and tea (with or without caffeine). Drinks that containalcohol. Energy drinks and sports drinks. Carbonated drinks or sodas. Chocolate and cocoa. Peppermint and mint flavorings. Garlic and onions. Horseradish. Spicy and acidic foods, including peppers, chili powder, chen powder, vinegar, hot sauces, and barbecue sauce. Coles fruit juices and citrus fruits, such as oranges, li, and limes. Tomato-based foods, such as red sauce, chili, salsa, and pizza with red sauce. Fried and fatty foods, such as donuts, venezuelan fries, potato chips, and high -fat dressings. High-fat meats, such as hot dogs and fatty cuts of red and white meats, such as rib eye steak, sausage, ham, and turk. High-fat dairy items, such as whole milk, butter, and cream cheese. Eat small, frequent meals instead of large meals. Avoid drinking large amounts of liquid with your meals. Avoid eating meals during the 23 hours before bedtime. Avoid lying down right after you eat. Do not exercise right after you eat. General Instructions Pay attention to any changes in your symptoms. Take whmr-dka-ewlbzew and prescription medicines only as told by your health care provider. Do not take aspirin, ibuprofen, or other NSAIDs unless your health care provider told you to do so. Do not use any tobacco products, including cigarettes, chewing tobacco, and e-cigarettes. If you need help quitting, ask your health care provider. Wear loose-fitting clothing. Do not wear anything tight around your waist that causes pressure on your abdomen. Raise (elevate) the head of your bed 6 inches (15cm). Try to reduce your stress, such as with yoga or meditation. If you need help reducing stress, ask your health care provider. If you are overweight, reduce your weight to an amount that is healthy for you. Ask your health care provider for guidance about a safe weight loss goal. Keep all follow-up visits as told by your health care provider. This is important. SEEK MEDICAL CARE IF: You have new symptoms. You have unexplained weight loss. You have difficulty swallowing, or it hurts to swallow. You have wheezing or a persistent cough. Your symptoms do not improve with treatment. You have a hoarse voice. SEEK IMMEDIATE MEDICAL CARE IF: You have pain in your arms, neck, jaw, teeth, or back. You feel sweaty, dizzy, or light-headed. You have chest pain or shortness of breath. You vomit and your vomit looks like blood or coffee grounds. You faint. Your stool is bloody or black. You cannot swallow, drink, or eat. This information is not intended to replace advice given to you by your health care provider. Make sure you discuss any questions you have with your health care provider. Document Released: 11/12/2005 Document Revised: 10/24/2015 Document Reviewed: 05/30/2015 [employer] Interactive Patient Education 2016 [employer] No follow up information was provided. Extracted from: Title: 6 Month CRMMP Author: Kennedy Salazar MD Date: 06/30/16 Impression and Plan Diagnosis CAD (coronary artery disease) (LTI81-YY I25.10, Discharge, Medical). Pure hypercholesterolemia (IGW58-QZ E78.00, Discharge, Medical). Chronic obstructive pulmonary disease (COPD) (JEH11-XL J44.9, Discharge, Medical). Gastroesophageal reflux disease (IPI43-HX K21.9, Discharge, Medical). Hx of smoking (KCY49-CG Z87.891, Discharge, Medical). Allergic rhinitis (VKT20-BP J30.0, Discharge, Medical). Benign essential hypertension (KML52-UG I10, Discharge, Medical). Type 2 diabetes mellitus, controlled (ECB75-TM E11.9, Discharge, Medical).
--- OUTSIDE RECORDS SUMMARY | 2017-06-22 19:34 | External Medical Summary | Referral Summary ---
:1950 Author [facility] Address [address] [place] [address] [place] [address] Care Team Providers Name Role Phone Kennedy Salazar V Primary Care Physician Encounter VC Date(s): 08/07/14 - 08/07/14 [facility] [place] [facility] [place] [address] [place] Discharge Disposition: [...] DAILY, # 16 unknown unit, 2 Refill(s), [facility], USE ONE SPRAY(S) IN EACH [...] TABLETS TWICE DAILY, # 360 tabs, eRx: [facility], TAKE 2TABLETS TWICE DAILY Start Date: 02/01/15 Status: Orderedomeprazole 40 mg oral delayed release capsule 1 caps, Oral, Daily, # 90 caps, 3 Refill(s), [facility], [facility] caps Oral Daily Start Date: 05/09/14 Status: Orderedone touch ultra blue test strip one touch ultra blue test strip, See Instructions, test blood sugars fasting and 2 hrs pc on 3 days per week E11.9, # 100 Each, 10 Refill(s), Pharmacy: [facility], test blood sugars fasting and 2 hrs pc on 3 days per week E11.9 Start Date: 01/31/15 Status: Orderedtamsulosin 0.4 mg oral capsule 0.4 mg 1 caps, Oral, Daily, # 30 caps, 5 Refill(s), Pharmacy: [facility], 1 caps Oral Daily [...] 22, [address] Martin showeddiverticulitis mild.2in [id number] Social History Social History Type Response Smoking [...] [facility] I want to see back [...]
--- OUTSIDE RECORDS SUMMARY | 2017-06-22 19:34 | External Medical Summary | Referral Summary ---
:1950 Author Organization [facility] [place] [facility] [place] [address] Care Team Providers Name Role Phone Kennedy Salazar V Primary Care Physician Encounter VC Date(s): 07/10/15 - 07/10/15 [facility] [place] [facility] [place] [address] [place] Discharge Disposition: 01-Home or Self Care Attending Physician: Bill Lund APRN Admitting Physician: Bill Lund APRN Referring Physician: Ismael Burris MD Vital Signs Most recent to oldest [Reference Range]: 1 Peripheral Pulse Rate [60-100 bpm] 70 bpm (07/10/15 8:04 AM) Respiratory Rate [14-20 br/min] 18 br/min (07/10/15 8:04 AM) Blood Pressure [90-140/60-90 mmHg] 128/72 mmHg (07/10/15 8:04 AM) Mean Arterial Pressure, Cuff 91 mmHg (07/10/15 8:04 AM) SpO2 96 % (07/10/15 8:04 AM) Problem List Condition Effective Dates Status [...] DAILY, # 1 Each, 11 Refill(s), Pharmacy: [facility] Start Date: 05/22/15 Status: [...] days, # 360 tabs, 1 Refill(s), Pharmacy: [facility], 2 tabs Oral BID,x90 days Start Date: 04/09/15 Stop Date: 10/06/15 Status: Orderedomeprazole 40 mg oral delayed release capsule 40 mg 1 caps, Oral, Daily, # 90 caps, 3 Refill(s), [facility], 1 caps Oral Daily Start Date: 04/09/15 Status: Orderedone touch ultra blue test strip one touch ultra blue test strip, See Instructions, test blood sugars fasting and 2 hrs pc on 3 days per week E11.9, # 100 Each, 10 Refill(s), Pharmacy: [facility], test blood sugars fasting and 2 hrs pc on 3 days per week E11.9 Start Date: 01/31/15 Status: OrderedPradaxa 150 mg oral capsule 150 mg 1 caps, Oral, BID, # 60 caps, 0 Refill(s) Start Date: 05/22/15 Status: Orderedtamsulosin 0.4 mg oral capsule 0.4 mg 1 caps, Oral, Daily, # 90 caps, 3 Refill(s), Pharmacy: [facility], 1 caps Oral Daily Start Date: 04/09/15 Status: Ordered Results Hematology Most recent to oldest [Reference Range]: 1 WBC [4.8-10.8 10*3/uL] 11.0 10*3/uL *HI* (07/10/15 9:08 AM) RBC [4.60-6.20] 4.24 *LOW* (07/10/15 9:08 AM) Hgb [14.0-18.0 gm/dL] 13.9 gm/dL *LOW* (07/10/15 9:08 AM) Hct [42.0-52.0 %] 40.2 % *LOW* (07/10/15 9:08 AM) MCV [82.0-99.0 fL] 94.8 fL (07/10/15 9:08 AM) MCH [27.0-32.0 pg] 32.8 pg *HI* (07/10/15 9:08 AM) MCHC [32.0-36.0 gm/dL] 34.6 gm/dL (07/10/15 9:08 AM) RDW [11.5-14.5 %] 12.0 % (07/10/15 9:08 AM) Platelet [150-400 10*3/uL] 228 10*3/uL (07/10/15 9:08 AM) MPV [8.8-14.8 fL] 10.2 fL (07/10/15 9:08 AM) Immature Granulocytes [0.0-1.0 %] 0.1 % (07/10/15 9:08 AM) Neutrophils [51-75 %] 70 % (07/10/15 9:08 AM) Lymphocytes [20-46 %] 19 % *LOW* (07/10/15 9:08 AM) Monocytes [4-11 %] 8 % (07/10/15 9:08 AM) Eosinophils [0-4 %] 4 % (07/10/15 9:08 AM) Basophils [0-2 %] 0 % (07/10/15 9:08 AM) Neutro Absolute [1.90-7.00 10*3] 7.66 10*3 *HI* (07/10/15 9:08 AM) Lymph Absolute [0.80-3.30 10*3] 2.08 10*3 (07/10/15 9:08 AM) [place] Absolute [0.30-1.00 10*3] 0.83 10*3 (07/10/15 9:08 AM) Eos Absolute [0.00-0.50 10*3] 0.38 10*3 (07/10/15 9:08 AM) Baso Absolute [0.00-0.20 10*3] 0.03 10*3 (07/10/15 9:08 AM) Chemistry Most recent to oldest [Reference Range]: 1 Sodium Lvl [135-144 mEq/L] 141 mEq/L (07/10/15 9:08 AM) Potassium Lvl [3.5-5.2 mEq/L] 4.2 mEq/L (07/10/15 9:08 AM) Chloride [99-111 mEq/L] 108 mEq/L (07/10/15 9:08 AM) CO2 [23-31 mEq/L] 23 mEq/L (07/10/15 9:08 AM) AGAP [3-20] 10 (07/10/15 9:08 AM) BUN [8-26 mg/dL] 19 mg/dL (07/10/15 9:08 AM) Glucose Lvl [70-99 mg/dL] 174 mg/dL *HI* (07/10/15 9:08 AM) Creatinine Lvl [0.72-1.25 mg/dL] 1.24 mg/dL (07/10/15 9:08 AM) eGFR [>60 mL/min] 58 mL/min 1 *ABN* (07/10/15 9:08 AM) Calcium Lvl [8.9-10.5 mg/dL] 9.2 mg/dL (07/10/15 9:08 AM) 1Result Comment: Multiply eGFR results by [...] 22, [address] Martin showeddiverticulitis mild.2in [id number] Social History Social History Type Response Smoking Status Former smoker; Type: Cigarettes1 1quit 03/20/2010 Assessment and Plan No data available for this section
--- OUTSIDE RECORDS SUMMARY | 2017-06-22 19:34 | External Medical Summary | Referral Summary ---
:1950 Author Organization [facility] [place] [facility], Cardiology [address] [place] [address] Care Team Providers Name Role Phone Kennedy Salazar Isabelle Primary Care Physician Encounter VC Date(s): 05/14/16 - 05/14/16 [facility] [place] [facility], [address] [place] [address]- Discharge Diagnosis: CAD (coronary artery disease) Discharge Diagnosis: Snoring Discharge Diagnosis: Brain aneurysm Discharge Diagnosis: Chronic obstructive pulmonary disease (COPD) Discharge Diagnosis: Paroxysmal atrial fibrillation Discharge Diagnosis: Hypercholesteremia Discharge Diagnosis: History of percutaneous coronary intervention Discharge Diagnosis: Type 2 diabetes mellitus, controlled Discharge Diagnosis: Dyspnea Discharge Disposition: 01-Home or Self Care Attending Physician: Juan C New MD Referring Physician: Cassidy Ortiz APRN Vital Signs Most recent to oldest [Reference Range]: 1 Peripheral Pulse Rate [60-100 bpm] 50 bpm *LOW* (05/14/16 12:45 PM) Blood Pressure [90-140/60-90 mmHg] 140/78 mmHg (05/14/16 12:45 PM) Problem List Condition Effective Dates Status [...] 11 Refill(s), Pharmacy: [id number] Start Date: 05/22/15 Status: OrderedGlucometer (DME) DME Item Using One Touch Ultra to check BGM 1 time daily. 250.00, See Instructions, # 1 Each, 0 Refill(s), Supply Start Date: 08/02/13 Status: OrderedGlucometer strips (DME) DME Item PT USES ONE TOUCH ULTRA TEST STRIPS TO CHECK BS BID FOR DX E11.9, See Instructions, # 100 Each, 0 Refill(s), Pharmacy: [id number], PT USES ONE TOUCH ULTRA TEST STRIPS TO CHECK BS BID FOR DX E11.9, Supply Start Date: 01/29/16 Status: Orderedlisinopril 40 mg oral tablet 40 mg 1 tabs, Oral, Daily, # 30 tabs, 0 Refill(s) Start Date: 05/08/16 Status: OrderedmetFORMIN 500 mg oral tablet See Instructions, TAKE 2 TABLETS TWICE DAILY, # 360 tabs, 1 Refill(s), eRx: [facility], TAKE 2 TABLETS TWICE DAILY Start Date: 11/19/15 Status: Orderedomeprazole 40 mg oral delayed release capsule 40 mg 1 caps, Oral, Daily, # 90 caps, 3 Refill(s), Pharmacy: [facility], 1 caps Oral Daily Start Date: 04/09/15 Status: Orderedone touch ultra blue test strip one touch ultra blue test strip, See Instructions, test blood sugars fasting and 2 hrs pc on 3 days per week E11.9, # 100 Each, 10 Refill(s), Pharmacy: [facility], test blood sugars fasting and 2 hrs pc on 3 days per week E11.9 Start Date: 01/31/15 Status: OrderedONE TOUCH ULTRA BLUE TESTST(NEW)100 See Instructions, TEST BLOOD SUGARS TWICE DAILY, # 100 strip, 1 Refill(s), eRx: [id number], TEST BLOOD SUGARS TWICE DAILY Start Date: 04/14/16 Status: OrderedoxyCODONE Oral, Shoulder surgery 07/30/15, 0 Refill(s) Start Date: 09/21/15 Status: OrderedPradaxa 150 mg oral capsule 150 mg 1 caps, Oral, BID, # 60 caps, 0 Refill(s) Start Date: 05/22/15 Status: Orderedtamsulosin 0.4 mg oral capsule 0.4 mg 1 caps, Oral, Daily, # 90 caps, 3 Refill(s), Pharmacy: [facility], 1 caps Oral Daily [...] 22, [address] Martin showeddiverticulitis mild.2in [id number] Social History Social History Type Response Smoking Status Former smoker; Type: Cigarettes1 1quit 03/20/2010 Assessment and Plan No data available for this section
--- OUTSIDE RECORDS SUMMARY | 2017-06-22 19:34 | External Medical Summary | Referral Summary ---
:1950 Author Organization [facility] [place] [facility] [place] [address] Care Team Providers Name Role Phone Kennedy Salazar V Primary Care Physician Encounter VC Date(s): 08/07/14 - 08/07/14 [facility] [place] [facility] [place] [address] [place] [address] [place] Discharge Disposition: [...] DAILY, # 16 unknown unit, 2 Refill(s), eRx:[facility], USE ONE SPRAY(S) IN EACH [...] OF THE WEEK, # 100 strip, eRx: [facility], TEST BLOOD SUGAR FASTING AND TWO HOURS AFTER MEALS ON 3 DAYS OF THEWEEK Start Date: 12/27/13 Status: OrderedONE TOUCH ULTRA BLUE TEST STRIPS ONE TOUCH ULTRA BLUE TEST STRIPS, See Instructions, Test blood sugar fasting and two hours after meals on three days of the week. Dx: 250.00, # 150 Each, 3 Refill(s), Pharmacy: [facility],Test blood sugar fasting and two hours after meal... Start Date: 06/06/14 Status: OrderedONE TOUGH ULTRA BLUE TEST STRIPS ONE TOUGH ULTRA BLUE TEST STRIPS, See Instructions, Check blood sugar up to twice a day DX. 250.00, # 100 Each, 2 Refill(s), Pharmacy: [facility], Check blood sugar up to twice a day ; DX. 250.00 Start Date: 08/09/14 Status: Orderedtamsulosin 0.4 mg oral capsule 0.4 mg 1 caps, Oral, Daily, # 30 caps, 5 Refill(s), Pharmacy: [facility], 1 caps Oral Daily [...] 22, [address] Martin showeddiverticulitis mild.2in [id number] Social History Social History Type Response Smoking [...]
--- OUTSIDE RECORDS SUMMARY | 2017-06-22 19:34 | External Medical Summary | Referral Summary ---
:1950 Author [facility] Address [address] [place] [address] [place] [address] Care Team Providers Name Role Phone Kennedy Salazar V Primary Care Physician Encounter VC Date(s): 01/29/15 - 01/29/15 [facility] [place] [facility] [place] [address] [place] Discharge Diagnosis: Shoulder pain Discharge Disposition: 01-Home or Self Care Attending Physician: Moises Mccoy MD Admitting Physician: Moises Mccoy MD Vital Signs Most recent to oldest [Reference Range]: 1 Temperature Tympanic [36.6-38.1 degC] 36.4 degC *LOW* (01/29/15 1:45 PM) Peripheral Pulse Rate [60-100 bpm] 72 bpm (01/29/15 1:45 PM) Blood Pressure [90-140/60-90 mmHg] 122/76 mmHg (01/29/15 1:45 PM) Problem List Condition Effective Dates Status [...] DAILY, # 16 unknown unit, 2 Refill(s), eRx:[facility], USE ONE SPRAY(S) IN [...] BID, # 360 tabs, 3 Refill(s), Pharmacy: [facility], 2 tabs Oral BID Start Date: 05/09/14 Status: Orderedomeprazole 40 mg oral delayed release capsule 1 caps, Oral, Daily, # 90 caps, 3 Refill(s), Pharmacy: [facility], 1 caps Oral Daily Start Date: 05/09/14 Status: Orderedone touch ultra blue test strip one touch ultra blue test strip, See Instructions, test blood sugars fasting and 2 hrs pc on 3 days per week E11.9, # 100 Each, 10 Refill(s), Pharmacy: [facility], test blood sugars fasting and 2 hrs pc on 3 days per week E11.9 Start Date: 01/29/15 Status: Orderedtamsulosin 0.4 mg oral capsule 0.4 mg 1 caps, Oral, Daily, # 30 caps, 5 Refill(s), Pharmacy: [facility], 1 caps Oral [...] 22, [address] Martin showeddiverticulitis mild.2in [id number] Social History Social History Type Response Smoking Status Former smoker; Type: Cigarettes1 1quit 03/20/2010 Assessment and Plan Extracted from: Title: Office Visit Note Author: Moises Mccoy MD Date: 01/29/15 Assessment/Plan Shoulder pain Plan: I you have adhesive capsulitis. I am going to or physical therapy and would have you be careful about anti-inflammatory medications but movement and stretching are very teeth g etting better. If you're not improving over the next several weeks we might consider getting a steroid injection. We discussed the need to find a new primary care doctor. Ordered: Physical Therapy Evaluation [id number]
[2017-06-22] MEDS ORDERED: SALINE FLUSH 10ml SYRINGE IVF PRN (19:35)
--- OUTSIDE RECORDS SUMMARY | 2017-06-22 19:35 | External Medical Summary | Continuity of Care Document ---
:1950 Author Organization [facility] Allergies Active Description Code Type Severity Reaction Onset Reported/ Identified Relationship Clinical to Patient Status Yes NKDA N/A N/A Yes No Known NKMA N/A N/A 08/03/2013 Medication Allergies Yes No Known No Aller Unknown N/A 07/24/2016 Drug Known gy Allergies Drug Aller gies Medications Medication Packaging Start Stop Route Dosage Sig Date Date 1 tabs 02/04/20 Oral HYDROcodone-aceta 4 14 1 tabs, minophen(Nezperce Oral, TID, 7.5 mg-325 mg PRN: as oral tablet) needed for pain 1 tabs 02/04/20 Oral 2 mg loperamide(cassie 4 14 1 tabs, mide 2 mg oral Oral, q4hr, tablet) PRN: Diarrhea/Lo ose Stools 07/10/19 Oral 1,500 mg glucosamine(gluco 4 16 1,500 mg, samine) Oral, Daily 05/22/19 Oral 325 mg aspirin(aspirin) 4 16 325 mg, Oral, Daily 1 tabs 06/28/19 SubLingual 0.4 mg nitroglycerin(Nit 4 15 1 tabs, rostat 0.4 mg SubLingual, sublingual q5min, 100 tablet) tabs, PRN: as needed for chest pain 02/04/20 Oral 25 mg diphenhydrAMINE(B 4 14 25 mg, enadryl) Oral, Daily, PRN: as needed for allergy symptoms 1 sprays 02/04/20 Nasal fluticasone 4 14 1 sprays, nasal(Flonase 50 Nasal, mcg/inh nasal Daily spray) 1 caps 10/06/19 Oral 40 mg omeprazole(omepra 4 14 1 caps, zole 40 mg oral Oral, Daily delayed release capsule) 1 tabs 06/17/201 06/18/20 Oral 50 mg atenolol(atenolol 4 14 1 tabs, 50 mg oral Oral, Daily tablet) 1 tabs Oral 40 mg atorvastatin(ator 4 1 tabs, vastatin 40 mg Oral, oral tablet) Bedtime (once a day) 1 tabs 06/28/19 Oral 75 mg clopidogrel(clopi 4 15 1 tabs, dogrel 75 mg oral Oral, Daily tablet) 2 tabs 10/06/19 Oral 1,000 mg metFORMIN(metFORM 4 14 2 tabs, IN 500 mg oral Oral, BID tablet) 1 tabs 05/09/19 Oral 10 mg lisinopril(lisino 4 17 1 tabs, pril 10 mg oral Oral, Daily tablet) 2 tabs 05/10/19 Oral 1,000 mg metFORMIN(metFORM 4 15 2 tabs, IN 500 mg oral Oral, BID, tablet) 360 tabs 1 caps 05/10/19 Oral 40 mg omeprazole(omepra 4 15 1 caps, zole 40 mg oral Oral, delayed release Daily, 90 capsule) caps 1 caps 12/13/19 Oral 0.4 mg tamsulosin(tamsul 4 14 1 caps, osin 0.4 mg oral Oral, capsule) Daily, 30 caps 1 sprays 08/08/19 Nasal fluticasone 4 15 1 sprays, nasal(Flonase 50 Nasal, BID, mcg/inh nasal 16 g spray) 05/10/19 fluocinonide 5 15 See topical(fluocinon instruction carmel 0.05% s, Apply topical cream) small amount to affected ear(s) twice daily as needed for itchiness., 30 g 1 tabs 05/04/19 Oral 500 mg ciprofloxacin(Cip 5 15 1 tabs, ro 500 mg oral Oral, tablet) q12hr, 60 tabs 05/15/19 Oral HYDROcodone-aceta 5 15 1-2 tabs, minophen(Nezperce 10 Oral, mg-325 mg oral Bedtime tablet) (once a day), 45 tabs, PRN: as needed for pain 1 tabs 06/28/19 Oral 500 mg ciprofloxacin(Cip 5 15 1 tabs, ro 500 mg oral Oral, tablet) q12hr, 60 tabs 1 tabs 07/07/19 Oral HYDROcodone-aceta 5 15 1 tabs, minophen(Nezperce 10 Oral, BID, mg-325 mg oral 60 tabs, tablet) PRN: as needed for pain tabs Oral mg amLODIPine(amLODI 5 tabs, Oral, [place] 10 mg oral Daily, 0 tablet) Refill(s) 1 caps 09/21/19 Oral 0.4 mg tamsulosin(tamsul 5 15 0.4 mg=1 osin 0.4 mg oral caps, Oral, capsule) Daily, 30 caps, 0 Refill(s) 1 tabs 05/22/19 Oral 75 mg clopidogrel(clopi 5 16 75 mg=1 dogrel 75 mg oral tabs, Oral, tablet) Daily, 0 Refill(s) 05/22/19 fluticasone 5 16 See nasal(fluticasone Instruction 50 mcg/inh nasal s, USE ONE spray) SPRAY(S) IN EACH NOSTRIL TWICE DAILY, 16 unknown unit, 2 Refill(s) 2 tabs 10/06/19 Oral 1,000 mg metFORMIN(metFORM 6 16 1,000 mg=2 IN 500 mg oral tabs, Oral, tablet) BID, for 90 days, 360 tabs, 1 Refill(s) 1 caps 05/20/19 Oral 40 mg omeprazole(omepra 6 17 40 mg=1 zole 40 mg oral caps, Oral, delayed release Daily, 90 capsule) caps, 3 Refill(s) 1 caps 06/03/19 Oral 0.4 mg tamsulosin(tamsul 6 17 0.4 mg=1 osin 0.4 mg oral caps, Oral, capsule) Daily, 90 caps, 3 Refill(s) 1 caps Oral 150 mg dabigatran(Pradax 6 150 mg=1 a 150 mg oral caps, Oral, capsule) BID, 60 caps, 0 Refill(s) fluticasone 6 See nasal(fluticasone Instruction 50 mcg/inh nasal s, USE ONE spray) SPRAY(S) IN EACH NOSTRIL TWICE DAILY, 1 Each, 11 Refill(s) 06/03/19 fluticasone 6 17 See nasal(fluticasone Instruction 50 mcg/inh nasal s, USE ONE spray) SPRAY(S) IN EACH NOSTRIL TWICE DAILY, 1 Each, 11 Refill(s) ORAL ORAL TAMSULOSIN HCL 6 daily ORAL ORAL PRADAXA 6 twice daily ORAL ORAL OMEPRAZOLE 6 ORAL ORAL METFORMIN HCL 6 twice each day ORAL ORAL LISINOPRIL 6 daily ORAL ORAL GLUCOSAMINE 6 daily Nasal Nasal FLUTICASONE 6 twice each PROPIONATE day FISH ORAL ORAL OIL 6 daily ORAL ORAL ATORVASTATIN 6 CALCIUM ORAL ORAL AMLODIPINE 6 BESYLATE 06/24/19 Oral oxyCODONE(oxyCODO 6 17 Voided NE) 08/16/19 metFORMIN(metFORM 6 17 See IN 500 mg oral Instruction tablet) s, TAKE 2 TABLETS TWICE DAILY, 360 tabs, 1 Refill(s) 0.5 mL 12/31/19 IntraMuscular pneumococcal 6 16 0.5 mL, 13-valent IntraMuscul conjugate ar, Once vaccine(Prevnar 13 intramuscular suspension) 1 tabs Oral 40 mg lisinopril(lisino 7 40 mg=1 pril 40 mg oral tabs, Oral, tablet) Daily, 30 tabs, 0 Refill(s) 08/16/19 omeprazole(omepra 7 17 See zole 40 mg oral Instruction delayed release s, TAKE 1 capsule) CAPSULE BY MOUTH EVERY DAY, 90 caps 08/19/19 tamsulosin(tamsul 7 17 See osin 0.4 mg oral Instruction capsule) s, TAKE 1 CAPSULE BY MOUTH EVERY DAY, 90 caps fluticasone 7 See nasal(fluticasone Instruction 50 mcg/inh nasal s, USE ONE spray) SPRAY(S) IN EACH NOSTRIL TWICE DAILY, 1 Each, 11 Refill(s) metFORMIN(metFORM 7 See IN 500 mg oral Instruction tablet) s, TAKE 2 TABLETS BY MOUTH TWICE DAILY, 360 tabs, 1 Refill(s) omeprazole(omepra 7 See zole 40 mg oral Instruction delayed release s, TAKE 1 capsule) CAPSULE BY MOUTH EVERY DAY, 90 caps, 1 Refill(s) tamsulosin(tamsul 7 See osin 0.4 mg oral Instruction capsule) s, TAKE 1 CAPSULE BY MOUTH EVERY DAY, 90 caps, 1 Refill(s) Problems Date Dx Attending Type Code Diagnosis Diagnosed By Coded 07/12/2015 Ashely, Final Z01.818 Encounter for other Bill A preprocedural examination 09/21/2015 Marie, Final E11.9 Type 2 diabetes mellitus Kennedy V without complications 09/21/2015 Marie, Final E78.0 Pure hypercholesterolemia Kennedy V 09/21/2015 Marie, Final I10 Essential (primary) Kennedy V hypertension 09/21/2015 Marie, Final 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 09/21/2015 Marie, Final K21.9 Gastro-esophageal reflux Kennedy V disease without esophagitis 12/31/2015 Marie, Final E11.9 Type 2 diabetes mellitus Kennedy V without complications 12/31/2015 Marie, Final E78.00 Pure Kennedy V hypercholesterolemia, unspecified 12/31/2015 Marie, Final I10 Essential (primary) Kennedy V hypertension 12/31/2015 Marie, Final 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 12/31/2015 Marie, Final K21.9 Gastro-esophageal reflux Kennedy V disease without esophagitis 05/08/2016 Cassidy Ortiz Final I10 Essential (primary) E hypertension 05/08/2016 Cassidy Ortiz Final I25.10 Atherosclerotic heart E disease of eek coronary artery without angina pectoris 05/08/2016 Cassidy Ortiz Final M62.81 Muscle weakness E (generalized) 05/08/2016 Cassidy Ortiz Final R06.02 Shortness of breath E 05/08/2016 Cassidy Ortiz Final Z87.09 Personal history of other E diseases of the respiratory system 05/14/2016 Juan C New Final E11.9 Type 2 diabetes mellitus without complications 05/14/2016 Juan C New Final E78.00 Pure hypercholesterolemia, unspecified 05/14/2016 Juan C New Final 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 05/14/2016 Juan C New Final I48.0 Paroxysmal atrial fibrillation 05/14/2016 Juan C New Final J44.9 Chronic obstructive pulmonary disease, unspecified 05/14/2016 Juan C New Final R06.00 Dyspnea, unspecified 05/14/2016 Juan C New Final R06.83 Snoring 05/14/2016 Juan C New Final Z98.890 Other specified postprocedural states 05/14/2016 Juan C New Final I67.1 Cerebral aneurysm, nonruptured 06/07/2016 Juan C New Final E78.00 Pure hypercholesterolemia, unspecified 06/07/2016 Juan C New Final I10 Essential (primary) hypertension 06/07/2016 Juan C New Final 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 06/07/2016 Juan C New Final I67.1 Cerebral aneurysm, nonruptured 06/07/2016 Juan C New Final J44.9 Chronic obstructive pulmonary disease, unspecified 06/07/2016 Juan C New Final R06.00 Dyspnea, unspecified 06/07/2016 Juan C New Final Z98.890 Other specified postprocedural states 06/30/2016 Gomark, Final E11.9 Type 2 diabetes mellitus Kennedy V without complications 06/30/2016 Gomark, Final I10 Essential (primary) Kennedy V hypertension 06/30/2016 Marie, Final E78.00 Pure Kennedy V hypercholesterolemia, unspecified 06/30/2016 Gomark, Final J30.0 Vasomotor rhinitis Kennedy V 06/30/2016 Marie, Final J44.9 Chronic obstructive Kennedy V pulmonary disease, unspecified 06/30/2016 Goering, Final K21.9 Gastro-esophageal reflux Kennedy V disease without esophagitis 06/30/2016 Gomark, Final Z87.891 Personal history of Kennedy V nicotine dependence 06/30/2016 Gomark, Final 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 07/24/2016 TOSHIA WILLIS, Z48.89 Encounter for other POP MEDELLIN specified surgical POP Moreno aftercare Procedures Code Description Performed By Performed On Radiologic 07/10/2015 61389 examination, chest, 2 views, frontal and lateral; Office or other 07/10/2015 98133 outpatient visit for the evaluation and management of an established patient, which requires at least 2 of these 3 alonso components: An expanded problem focused history; An expanded prob Electrocardiogram, 07/10/2015 44606 routine ECG with at least 12 leads; tracing only, without interpretation and report Electrocardiogram, 07/10/2015 51472 routine ECG with at least 12 leads; interpretation and report only Office or other 09/21/2015 01919 outpatient visit for the evaluation and management of an established patient, which requires at least 2 of these 3 alonso components: A detailed history; A detailed examination; Medical d Immunization 12/31/2015 31955 administration (includes percutaneous, intradermal, subcutaneous, or intramuscular injections); 1 vaccine (single or combination vaccine/toxoid).. Pneumococcal 12/31/2015 45717 conjugate vaccine, 13 valent (PCV13), for intramuscular use Office or other 12/31/2015 01350 outpatient visit for the evaluation and management of an established patient, which requires at least 2 of these 3 alonso components: A comprehensive history; A comprehensive examination; Electrocardiogram, 05/08/2016 56239 routine ECG with at least 12 leads; with interpretation and report Radiologic 05/08/2016 09071 examination, chest, 2 views, frontal and lateral; Office or other 05/08/2016 85648 outpatient visit for the evaluation and management of an established patient, which requires at least 2 of these 3 alonso components: A detailed history; A detailed examination; Medical d Echocardiography, 05/29/2016 20306 transthoracic, real-time with image documentation (2D), includes M-mode recording, when performed, complete, with spectral Doppler echocardiography, and with color flow Doppler echoc Myocardial 05/29/2016 40968 perfusion imaging, tomographic (SPECT) (including attenuation correction, qualitative or quantitative wall motion, ejection fraction by first pass or gated technique, additional quantificat Cardiovascular 05/29/2016 61838 stress test using maximal or submaximal treadmill or bicycle exercise, continuous electrocardiographic monitoring, and/or pharmacological stress; with supervision, interpretation and re Office or other 06/04/2016 44398 outpatient visit for the evaluation and management of an established patient, which requires at least 2 of these 3 alonso components: An expanded problem focused history; An expanded prob Office or other 06/30/2016 56144 outpatient visit for the evaluation and management of an established patient, which requires at least 2 of these 3 aolnso components: A comprehensive history; A comprehensive examination; Results Test Result Range L200.0050 - 07/30/15 08:42 ICTERUS < 2 0-7 HEMOLYSIS < 15 0-25 L900.0530 - 07/30/15 13:19 GLUCOMETER 191 mg/dL 75-110 L200.0050 - 01/02/16 08:19 ICTERUS < 2 0-7 HEMOLYSIS < 15 0-25 TURBIDITY < 20 0-20 SODIUM 146 MEQ/L 134-144 POTASSIUM 4.4 MEQ/L 3.6-5 CHLORIDE 108 MEQ/L 98-107 CO2 - CARBON DIOXIDE 23 MEQ/L 22-30 ANION GAP 15 MEQ/L 5-15 BLOOD UREA NITROGEN 16.0 MG/DL 9-20 CREATININE 1.0 MG/DL 0.8-1.5 BUN/CREATININE RATIO 16 RATIO 6-26 GLOMERULAR FILTRATION RATE 75 GLUCOSE 150 MG/DL 75-110 OSMOLALITY,CALCULATED 285 MOSM/KG 261-280 CALCIUM 9.7 MG/DL 8.4-10.2 L200.1848 - 01/02/16 08:19 TROPONIN I < 0.012 ng/ml 0-0.12 L100.0050 - 01/02/16 08:19 WBC - WHITE BLOOD COUNT 13.2 T/MM3 4.5-11.0 RED BLOOD COUNT 4.22 M/MM3 4.50-5.90 HGB - HEMOGLOBIN 13.6 GM/DL 13.5-17.5 HCT - HEMATOCRIT 40.8 % 41-53 MEAN CORPUSCULAR VOLUME 96.7 UM3 80-100 MEAN CORPUSCULAR HGB 32.2 UUG 26-34 MEAN CORPUSCULAR HGB CONC(MCHC 33.3 GM/DL 31-37 RDW STANDARD DEVIATION 40.9 FL 36.9-50.2 PLT - PLATELET COUNT 202 T/MM3 130-400 MEAN PLATELET VOLUME 9.8 UM3 9.4-12.4 NEUTROPHILS % (AUTO) 74.5 % 33-66 LYMPHOCYTES % (AUTO) 14.3 % 23-45 MONOCYTES % (AUTO) 9.0 % 0-9.0 EOSINOPHILS % (AUTO) 1.8 % 0-4 BASOPHILS % (AUTO) 0.2 % 0-2 IMMATURE GRANULOCYTE % (AUTO) 0.2 % 0.0-0.5 NEUTROPHILS # (AUTO) 9.8 T/MM3 1.8-7.7 LYMPHOCYTES # (AUTO) 1.9 T/MM3 1-4.8 MONOCYTES # (AUTO) 1.2 T/MM3 0-0.8 EOSINOPHILS # (AUTO) 0.2 T/MM3 0-0.5 BASOPHILS # (AUTO) 0.0 T/MM3 0-0.2 IMMATURE GRANULOCYTE # (AUTO) 0.02 T/MM3 0.00-0.03 L160.0105 - 01/02/16 08:19 INR 1.09 0.99-1.21 L200.1880 - 01/02/16 08:19 PROBNP 197 PG/ML 0-175 L200.1848 - 01/02/16 11:15 HEMOLYSIS < 15 0-25 TROPONIN I < 0.012 ng/ml 0-0.12 Hepatitis C Total Antibody - 06/23/16 09:31 Hepatitis C Total Antibody Negative Encounters ACCT No. Visit Discharge Status Pt. Type Provider Facility Loc./Unit Complaint Date/Time [id number] 05/02/2013 05/02/2013 CLS Outpatient 09:30:00 23:59:59 [id number] 12/10/2012 12/10/2012 CLS Outpatient 15:31:00 23:59:59 KSWebIZ 09/01/2014 ACT Document 11:52:39 Registrati on [id number] 04/03/2016 04/03/2016 DIS Outpatient 13:21:28 13:21:28 [id number] 07/24/2016 07/24/2016 DIS Outpatient TOSHIA AMB.NOSM Lt 95 08:53:00 23:59:00 POP WILLIS Shoulder S RCR [id number] 01/02/2016 01/02/2016 DIS Emergency LUIS M TREJO, Bee ED 16 07:56:00 12:43:00 [facility] [id number] 07/20/2015 Document 16 07:56:00 Registrati on [id number] 06/30/2016 06/30/2016 DIS Outpatient Goering, [facility] New FM 6 month 88 08:12:00 23:59:00 Kennedy Barrientos CRM Clinic [id number] 06/23/2016 06/23/2016 DIS Outpatient Goering, [facility] New FM medicare 35 08:18:00 23:59:00 Kennedy Barrientos wellness Clinic [id number] 06/04/2016 06/04/2016 DIS Outpatient New, Via [facility] New FOLLOW UP 07 15:29:00 23:59:00 Juan C L Iliana Card AFTER Clinic TESTING [id number] 05/29/2016 05/29/2016 DIS Outpatient New, [facility] Mur TTM New 35 10:00:00 23:59:00 Juan C L Iliana Card Clinic [id number] 05/29/2016 05/29/2016 DIS Outpatient Shaq, [facility] Mur TTM New 58 08:18:00 23:59:00 Juan C L Iliana Card Clinic [id number] 05/29/2016 05/29/2016 DIS Outpatient New, Via [facility] Mur ECHO 78 07:14:00 23:59:00 Juan C L Iliana Card NEW Clinic [id number] 05/14/2016 05/14/2016 DIS Outpatient New, Via [facility] New NPV SOA ON 40 11:49:00 23:59:00 Juan C L Iliana Card EXERTION Clinic TANDOC [id number] 05/08/2016 05/08/2016 DIS Outpatient Tandoc, Via [facility] New FM ARMS AND 57 14:25:00 23:59:00 Cassidy E Iliana LEGS Clinic WEAKNESS X1 WK [id number] 05/08/2016 05/08/2016 DIS Outpatient Tandoc, [facility] Mur SOB R06.02 45 00:01:00 23:59:00 Cassidy E Iliana Card Clinic [id number] 12/31/2015 12/31/2015 DIS Outpatient Goering, [facility] New FM TCPA 3 44 10:15:00 23:59:00 Kennedy Barrientos [facility] CDM Clinic DM HTN [id number] 09/21/2015 09/21/2015 DIS Outpatient Goering, [facility] New FM 4 month 91 09:25:00 23:59:00 Kennedy Barrientos CDM DM HTN Clinic [id number] 07/10/2015 07/10/2015 CLS Outpatient Lund, [facility] New FM pre op 25 07:46:00 23:59:59 Bill Barrientos surgery A Clinic Dr. Burris 6-7 [id number] 07/10/2015 07/10/2015 DIS Outpatient Lund, [facility] Mur Z01.818 16 15:31:00 23:59:00 Bill Ibrahimi Card A Clinic [id number] 06/01/2015 06/01/2015 DIS Outpatient Karel, [facility] E21 NPV 11 10:01:00 23:59:00 Kolby Barrientos Pod INGROWN Clinic [facility]AB[facility] [id number] 05/22/2015 05/22/2015 DIS Outpatient Goering, [facility] New FM 3MTH CRMMP 64 10:20:00 23:59:00 Kennedy Barrientos FROM Clinic 1.5.16 [id number] 02/20/2015 02/20/2015 CLS Outpatient Goering, Via [facility] New FM NPV and 3 87 08:40:00 23:59:59 eKnnedy Barrientos month Clinic recheck diabetes [id number] 01/29/2015 01/29/2015 DIS Outpatient Darius, Via [facility] New FM left 03 13:32:00 23:59:00 Moises Barrientos shoulder Clinic pain [id number] 11/20/2014 11/20/2014 DIS Outpatient Darius, Via [facility] New FM 3 month ck 92 09:46:00 23:59:00 Moisesenrique Barrientos Clinic [id number] 08/21/2014 08/21/2014 DIS Outpatient Darius, Via [facility] New FM 2 week 08 11:22:00 23:59:00 Moises Barrientos follow up Clinic [id number] 08/08/2014 08/08/2014 DIS Outpatient Darius, [facility] Mur HOLTER/427 46 15:51:00 23:59:00 Moises Hinkle .31/CASIMI Clinic R [id number] 08/07/2014 08/07/2014 DIS Outpatient Darius, Via [facility] New FM 3 MO 01 10:16:00 23:59:00 Moises D Iliana DIABETIC Clinic RCK [id number] 05/03/2014 05/03/2014 DIS Outpatient Darius, Via [facility] New FM 3 MO RCK 53 08:52:00 23:59:00 Moises D Iliana DIABETIC Clinic [id number] 03/15/2014 03/15/2014 DIS Outpatient Darius, Via [facility] New FM RCK/per 91 09:25:00 23:59:00 Moises D Iliana Isa Clinic [id number] 03/10/2014 03/10/2014 DIS Outpatient Darius, Via [facility] New FM rck 36 08:33:00 23:59:00 Moises D Iliana Clinic [id number] 03/03/2014 03/03/2014 DIS Outpatient Darius, Via [facility] New FM DIVERTICUL 65 07:56:00 23:59:00 Moisesenrique Barrientos ITIS?per Clinic Isa [id number] 02/22/2014 02/22/2014 DIS Outpatient Brooks, Via [facility] FC Sagrario - 28 15:14:00 23:59:00 Sagrario Barrientos Audio Medicare - Clinic [place] [id number] 02/22/2014 02/22/2014 DIS Outpatient Misko, Via [facility] FC ENT SWOLLEN 44 13:41:00 23:59:00 Felix Barrientos TURBINEX/ Clinic NOSE [id number] 02/03/2014 02/03/2014 DIS Outpatient Darius, Via [facility] New FM 3 mo 69 09:05:00 23:59:00 Moises Mendez Iliana diabetic Clinic rck [id number] 08/02/2014 Document 16 12:59:00 Registrati on [id number] 06/27/2014 Document 06 13:58:00 Registrati on [id number] 06/06/2014 Document 17 13:16:00 Registrati on [id number] 08/19/2016 Document 1552 05:15:52 Registrati on [id number] 08/16/2016 Document 1632 05:16:32 Registrati on [id number] 06/03/2016 Document 1627 05:16:27 Registrati on [id number] 05/20/2016 Document 1705 05:17:05 Registrati on [id number] 05/09/2016 Document 1710 05:17:10 Registrati on [id number] 01/01/2016 Document 1559 05:15:59 Registrati on [id number] 11/20/2015 Document 1708 05:17:08 Registrati on [id number] 09/22/2015 Document 1621 05:16:21 Registrati on [id number] 05/23/2015 Document 1746 05:17:46 Registrati on [id number] 04/10/2015 Document 1734 05:17:34 Registrati on [id number] 12/06/2014 Document 2031 13:20:31 Registrati on [id number] 12/06/2014 Document 0517 13:05:17 Registrati on [id number] 12/06/2014 Document 4417 12:44:17 Registrati on [id number] 12/06/2014 Document 2201 12:22:01 Registrati on [id number] 12/06/2014 Document 1516 12:15:16 Registrati on [id number] 12/06/2014 Document 4154 11:41:54 Registrati on [id number] 12/06/2014 Document 3354 11:33:54 Registrati on [id number] 12/06/2014 Document 3950 10:39:50 Registrati on [id number] 12/06/2014 Document 1106 10:11:06 Registrati on [id number] 12/06/2014 Document 3746 09:37:46 Registrati on [id number] 12/06/2014 Document 5942 08:59:42 Registrati on
--- NOTE | 2017-06-22 19:42 | Emergency Department Report ---
SOB HPI - General Chief Complaint: Shortness of Breath/Dyspnea Stated Complaint: fever,cough,high bs,fatigue,muscle weakness, Source: patient, family Mode of arrival: ambulatory Limitations: no limitations - History of Present Illness Pt presents with a complaint of SOA, productive cough, intermittent fever, fatigue, chest pain with cough, and over all not feeling well. He states he was diagnosed with COPD a few years ago but not provided any meds. reports he slept in humid musty basement several days ago and is concerned he became ill from that. Pt is a vague historian. He has taken his medications. He reports cough is worse when he lays down MD Complaint: shortness of breath, cough Onset (ago): week(s) Exacerbating factors: lying flat Known history of: COPD - Related Data Home Medications Medication Instructions Recorded Confirmed Atorvastatin Calcium 40 mg PO HS #90 07/27/15 06/22/17 Fluticasone Nasal [place] [Flonase] 1 spray EA NOSTRIL BID #16 07/27/15 06/22/17 Omeprazole 40 mg PO QAM #90 07/27/15 06/22/17 Amlodipine [Norvasc] 10 mg PO HS 06/22/17 06/22/17 Dabigatran [Pradaxa] 150 mg PO BID 06/22/17 06/22/17 Fish Oil/Dha/Epa [Fish Oil 1,200 2,400 mg PO BID 06/22/17 06/22/17 mg Fish Oil] Lisinopril [Prinivil] 40 mg PO QAM 06/22/17 06/22/17 Metformin [Glucophage] 1,000 mg PO BIDWM 06/22/17 06/22/17 Tamsulosin [Flomax] 0.4 mg PO HS 06/22/17 06/22/17 Allergies Allergy/AdvReac Type Severity Reaction Status Date / Time No Known Drug Allergies Allergy Unknown Verified 06/22/17 20:12 Review of Systems All systems: reviewed and negative except as stated Constitutional: Reports: as per HPI Cardiovascular: Reports: as per HPI Respiratory: Reports: as per HPI Gastrointestinal: Reports: as per HPI Musculoskeletal: Reports: as per HPI Neurological: Reports: as per HPI PFSH Patient Stated Medical History Hearing Loss Yes Hypertension Yes Chronic Obstructive Pulmonary Yes: "BEEN TOLD I HAVE IT" Disease (COPD) Diabetes Mellitus Type 2 Yes Gastroesophageal Reflux Yes Disease Clinic Medical History High blood pressure (Acute Medical) Diabetes (Acute Medical) Arthritis (Acute Medical) Surgical History: 07/30/15 Left shoulder arthroscopy, RCR, debridement superior labrum. (single row repair of a large tear) Family History: Family History (Last Reviewed 07/24/16 @ 09:10 by Randy Mabry [facility]) Father Cancer - Social History Smoking status: Former smoker Substance use type: does not use Alcohol intake frequency: does not drink Current occupational status: retired Physical Exam - Limitations Limitations: no limitations - General General appearance: alert, in no apparent distress - Normal Exams: Head:: Normocephalic without trauma Chest/Respirations:: Clear all ortiz, with good airflow Cardiovascular:: Regular rate and rhythm, without murmur or gallop, Pulses 2+ all extremities, capillary refill, <2 seconds all extremities Abdomen:: Bowel sounds positive, soft, non-tender, non-distended Musculoskeletal:: No tenderness, or deformity noted, good range of motion, all extremities Integumentary:: No rashes Neurological:: Patient is alert, and oriented, cranial nerves, motor/sensory/ cerebellar, exams w/o gross deficits, to observation Psychiatric:: Patient exhibits, appropriate attention, emotion and affect Course Vital Signs Temperature 98.9 F 06/22/17 18:58 Pulse Rate 99 06/22/17 18:58 Respiratory Rate 24 06/22/17 18:58 Blood Pressure 148/76 H 06/22/17 18:58 Pulse Oximetry 93 06/22/17 18:58 Temperature 98.9 F 06/22/17 18:58 Pulse Rate 87 06/22/17 20:52 Respiratory Rate 24 06/22/17 20:52 Blood Pressure 140/65 H 06/22/17 20:52 Pulse Oximetry 95 06/22/17 20:52 Shortness of Breath/Dyspnea - [facility] [place] Narrative Medical decision making narrative: Labs, X ray, and EKG reviewed. Blood cultures obtained. IVF and antibiotics initiated as well as a Duoneb treatment. Findings and need for admission discussed with pt and family who voice understanding. Dr Kruse notified and will accept admission. - Differential Diagnosis Likely: acute exacerbation of chronic obstructive airways disease, congestive heart failure, community acquired pneumonia - Lab Data Attestation: I reviewed the patient's lab results. Result diagrams: 06/22/17 19:32 06/22/17 19:32 Lab Results 06/22/17 06/22/17 06/22/17 Range/Units 19:00 19:32 19:32 WBC 14.5 H (4.5-11.0) T/MM3 RBC 3.67 L (4.50-5.90) M/MM3 Hgb 11.8 L (13.5-17.5) GM/DL Hct 34.5 L (41-53) % MCV 94.0 (80-100) UM3 MCH 32.2 (26-34) UUG MCHC 34.2 (31-37) GM/DL RDW Std Deviation 38.8 (36.9-50.2) FL Plt Count 431 H (130-400) T/MM3 MPV 8.8 L (9.4-12.4) UM3 Immature Gran % (Auto) 0.2 (0.0-0.5) % Neut % (Auto) 77.2 H (33-66) % Lymph % (Auto) 11.5 L (23-45) % Burt % (Auto) 10.7 H (0-9.0) % Eos % (Auto) 0.3 (0-4) % Baso % (Auto) 0.1 (0-2) % Neut # (Auto) 11.2 H (1.8-7.7) T/MM3 Lymph # (Auto) 1.7 (1-4.8) T/MM3 Burt # (Auto) 1.6 H (0-0.8) T/MM3 Eos # (Auto) 0.0 (0-0.5) T/MM3 Baso # (Auto) 0.0 (0-0.2) T/MM3 Abs Immat Gran (auto) 0.03 (0.00-0.03) T/MM3 Turbidity < 20 (0-20) Sodium 139 (134-144) MEQ/L Potassium 4.3 (3.6-5) MEQ/L Chloride 103 (98-107) MEQ/L Carbon Dioxide 21 L (22-30) MEQ/L Anion Gap 15 (5-15) meq/L BUN 19.0 (9-20) MG/DL Creatinine 1.1 (0.8-1.5) mg/dL GFR Calculation 66 BUN/Creatinine Ratio 17 (6-26) RATIO Glucose 203 H (75-110) MG/DL Glucometer 193 (65-110) mg/dL Calculated Osmolality 276 (261-280) MOSM/KG Calcium 8.6 (8.4-10.2) MG/DL Total Bilirubin 0.40 (0.20-1.30) MG/DL Icterus Index < 2 (0-7) AST 72 H (17-59) U/L ALT 64 H (1-50) U/L Alkaline Phosphatase 78 (38-126) U/L Troponin I < 0.012 (0-0.12) ng/ml Total Protein 7.5 (6.3-8.2) g/dL Albumin 3.8 (3.5-5.0) g/dL Globulin 3.7 H (2.4-3.6) G/DL Albumin/Globulin Ratio 1.0 L (1.1-2.2) RATIO Plasma Lactate (0.6-2.2) MMOL/L Specimen Hemolysis < 15 (0-25) Ur Collection Type Urine Color (YELLOW) Urine Clarity Urine pH (5.0-8.0) Ur Specific [place] (1.015-1.025) Urine Protein (NEGATIVE) Urine Glucose (UA) (NEGATIVE) Urine Ketones (NEGATIVE) Urine Occult Blood (NEGATIVE) Urine Nitrate (NEGATIVE) Urine Bilirubin (NEGATIVE) Urine Urobilinogen (NORMAL) EU/DL Ur Leukocyte Esterase (NEGATIVE) Urine RBC (0-3) /HPF Urine WBC (0-5) /HPF Ur Squamous Epith Cells Urine Bacteria (NEGATIVE) Ur Culture Indicated? 06/22/17 06/22/17 Range/Units 19:32 20:35 WBC (4.5-11.0) T/MM3 RBC (4.50-5.90) M/MM3 Hgb (13.5-17.5) GM/DL Hct (41-53) % MCV (80-100) UM3 MCH (26-34) UUG MCHC (31-37) GM/DL RDW Std Deviation (36.9-50.2) FL Plt Count (130-400) T/MM3 MPV (9.4-12.4) UM3 Immature Gran % (Auto) (0.0-0.5) % Neut % (Auto) (33-66) % Lymph % (Auto) (23-45) % Burt % (Auto) (0-9.0) % Eos % (Auto) (0-4) % Baso % (Auto) (0-2) % Neut # (Auto) (1.8-7.7) T/MM3 Lymph # (Auto) (1-4.8) T/MM3 Burt # (Auto) (0-0.8) T/MM3 Eos # (Auto) (0-0.5) T/MM3 Baso # (Auto) (0-0.2) T/MM3 Abs Immat Gran (auto) (0.00-0.03) T/MM3 Turbidity (0-20) Sodium (134-144) MEQ/L Potassium (3.6-5) MEQ/L Chloride (98-107) MEQ/L Carbon Dioxide (22-30) MEQ/L Anion Gap (5-15) meq/L BUN (9-20) MG/DL Creatinine (0.8-1.5) mg/dL GFR Calculation BUN/Creatinine Ratio (6-26) RATIO Glucose (75-110) MG/DL Glucometer (65-110) mg/dL Calculated Osmolality (261-280) MOSM/KG Calcium (8.4-10.2) MG/DL Total Bilirubin (0.20-1.30) MG/DL Icterus Index (0-7) AST (17-59) U/L ALT (1-50) U/L Alkaline Phosphatase (38-126) U/L Troponin I (0-0.12) ng/ml Total Protein (6.3-8.2) g/dL Albumin (3.5-5.0) g/dL Globulin (2.4-3.6) G/DL Albumin/Globulin Ratio (1.1-2.2) RATIO Plasma Lactate 1.8 (0.6-2.2) MMOL/L Specimen Hemolysis (0-25) Ur Collection Type Urine, void-cc/notcc Urine Color Yellow (YELLOW) Urine Clarity Clear Urine pH 5.5 (5.0-8.0) Ur Specific [place] 1.025 (1.015-1.025) Urine Protein 1+ A (NEGATIVE) Urine Glucose (UA) Trace A (NEGATIVE) Urine Ketones Negative (NEGATIVE) Urine Occult Blood 2+ A (NEGATIVE) Urine Nitrate Negative (NEGATIVE) Urine Bilirubin Negative (NEGATIVE) Urine Urobilinogen 1.0 (NORMAL) EU/DL Ur Leukocyte Esterase Negative (NEGATIVE) Urine RBC 0-1 (0-3) /HPF Urine WBC None seen (0-5) /HPF Ur Squamous Epith Cells 0-5 Urine Bacteria None seen (NEGATIVE) Ur Culture Indicated? Cult not indicated - Radiology Data Attestation: I reviewed the patient's radiology results. (Right sided pneumonia per Dr Kumar) - EKG Data EKG #1 EKG attestation: Yes: I reviewed and interpreted this EKG. EKG shows normal: sinus rhythm Rhythm: NSR Disposition Clinical Impression: Community acquired pneumonia Qualifiers: Laterality: right Lung location: lower lobe of lung Qualified Code(s): J18.1 - Lobar pneumonia, unspecified organism [place]: 02 [place] [facility] [place] Condition: Improved Prescriptions: No Action Atorvastatin Calcium 40 mg PO HS #90 Fluticasone Nasal [place] [Flonase] 1 spray EA NOSTRIL BID #16 Omeprazole 40 mg PO QAM #90 Tamsulosin [Flomax] 0.4 mg PO HS Dabigatran [Pradaxa] 150 mg PO BID Lisinopril [Prinivil] 40 mg PO QAM Amlodipine [Norvasc] 10 mg PO HS Metformin [Glucophage] 1,000 mg PO BIDWM Fish Oil/Dha/Epa [Fish Oil 1,200 mg Fish Oil] 2,400 mg PO BID Time of Disposition: 21:35 - Seen By: midlevel
[2017-06-22] MEDS ORDERED: NS 1,000 ML IV ONE (19:45)
[2017-06-22] MEDS ORDERED: CEFTRIAXONE (ER USE ONLY) 1 GM in NS 100 ML IV ONE (21:01)
[2017-06-22] MEDS ORDERED: NS FLUSH BAG 500ml IV PRN (21:03)
[2017-06-22] MEDS ORDERED: ALBUTEROL/IPRATROPIUM 2.5mg-0.5mg/3ml NEB AEROSOL ONE (21:07)
[2017-06-22] MEDS ORDERED: MAG-AL + SIM ORAL LIQUID 30ml PO PRN (22:14)
[2017-06-22] MEDS ORDERED: CEFTRIAXONE 2 GM INJECTION IV SCH (22:14)
[2017-06-22] MEDS ORDERED: ONDANSETRON ODT 4 MG TABLET PO PRN (22:14)
[2017-06-22] MEDS ORDERED: HYDROCODONE/CHLORPHENIRAMINE ER ORAL LIQ 5ml PO PRN (22:14)
[2017-06-22] MEDS ORDERED: ACETAMINOPHEN 325 MG TABLET PO PRN (22:14)
[2017-06-22 22:37] VITALS: BMI 29.3
[2017-06-22] MEDS ORDERED: DEXTROSE 50% SYRINGE 50ml (1 AMP) IVP PRN (23:03)
[2017-06-22] MEDS ORDERED: ALBUTEROL 2.5mg/3ml (0.083%) NEB AEROSOL PRN (23:05)
--- NOTE | 2017-06-22 23:09 | History & Physical Report ---
History of Present Illness Date: 06/22/17 Chief complaint: SOB, cough HPI: The pt started developing SOB, cough-nonproductive, and have chills about 6 days ago and has been getting worse since onset. He came to the ER tonight due to progressive symptoms. Review of Systems - Constitutional Constitutional: Present: as per HPI, chills, fatigue, fever(s), headache(s) - EENMT Mouth/Throat: Present: sore throat - Cardiovascular Cardiovascular: Absent: chest pain - Respiratory Respiratory: Present: cough, chest congestion. Absent: dyspnea, hemoptysis, wheezing - Gastrointestinal Gastrointestinal: Absent: abdominal pain, change in bowel habits, nausea, vomiting - Neurological Neurological: Absent: dizziness, numbness Past Medical History Medical History: Medical History High blood pressure (Acute) Diabetes (Acute) Arthritis (Acute) Surgical History: 07/30/15 Left shoulder arthroscopy, RCR, debridement superior labrum. (single row repair of a large tear) Family History: Family History (Last Reviewed 07/24/16 @ 09:10 by Randy Mabry [facility]) Father Cancer Family History: No Significant Family History - Social History Smoking status: Former smoker Medications Home Medications Medication Instructions Recorded Confirmed Type Atorvastatin Calcium 40 mg PO HS #90 07/27/15 06/22/17 History Fluticasone Nasal [place] [Flonase] 1 spray EA NOSTRIL BID #16 07/27/15 06/22/17 History Omeprazole 40 mg PO QAM #90 07/27/15 06/22/17 History Amlodipine [Norvasc] 10 mg PO HS 06/22/17 06/22/17 History Dabigatran [Pradaxa] 150 mg PO BID 06/22/17 06/22/17 History Fish Oil/Dha/Epa [Fish Oil 1,200 2,400 mg PO BID 06/22/17 06/22/17 History mg Fish Oil] Lisinopril [Prinivil] 40 mg PO QAM 06/22/17 06/22/17 History Metformin [Glucophage] 1,000 mg PO BIDWM 06/22/17 06/22/17 History Tamsulosin [Flomax] 0.4 mg PO HS 06/22/17 06/22/17 History Allergies Allergy/AdvReac Type Severity Reaction Status Date / Time No Known Drug Allergies Allergy Unknown Verified 06/22/17 20:12 Exam Vital Signs: Temperature 98.5 F 06/22/17 22:14 Pulse Rate 90 06/22/17 22:30 Respiratory Rate 18 06/22/17 22:30 Blood Pressure 141/77 H 06/22/17 22:14 Pulse Oximetry 95 06/22/17 22:30 Height/Weight/BMI: Height 1.78 m Weight 92.7 kg Body Mass Index 29.3 - Constitutional Present: no acute distress, well nourished, well developed - Routine HEENT Exam Head: Present: normocephalic Eye: Present: EOMI ENT: Present: mucous membranes moist - Routine Neck Exam Present: supple - Routine Respiratory Exam Present: CTA bilaterally. Absent: respiratory distress - Routine Cardiovascular Exam Present: RRR, no murmur - Routine Abdominal Exam Present: soft, normoactive bowel sounds, tenderness - Routine Extremities Exam Present: no edema Results - Labs CBC & Chem 7: 06/22/17 19:32 06/22/17 22:21 Assessment and Plan (1) High blood pressure Current visit: No Status: Acute (2) Diabetes Current visit: No Status: Acute (3) Community acquired pneumonia Current visit: Yes Status: Acute Assessment and Plan: will start the pt on rocephin and azithromycin, breathing tx QID and albuterol prn, consistent carb diet, sliding scale insulin but also restarting home meds. re-exam in am. DVT Prophylaxis: SCD's GI Prophylaxis: Pepcid Resuscitation Status: Full Code - Physician Narrative Narrative: Date: 06/22/17 Time: 2306 Hospital Course Summary Disclaimer: The visit summary below is not to be considered part of the above Progress Note.
[2017-06-23] MEDS: FLUTICASONE NASAL SPRAY 50mcg EA NOSTRIL SCH ×3 (00:38→20:38)
[2017-06-23] MEDS: ALBUTEROL/IPRATROPIUM 2.5mg-0.5mg/3ml NEB AEROSOL SCH ×4 (07:59→19:46)
--- NOTE | 2017-06-23 08:33 | XRay Report ---
INDICATION: cough, fever, COPD PROCEDURE: CHEST 2-VIEWS UPRIGHT (PA & LAT) Encounter: Initial COMPARISON: January 02, 2016 FINDINGS: New dense airspace consolidation in the posterior right upper lobe. Left lung is clear. No pleural effusion or pneumothorax. Heart size and mediastinal contours are stable. Pulmonary vascularity is normal. Impression: Right upper lobar pneumonia. .
[2017-06-23] MEDS ORDERED: AZITHROMYCIN 500 MG TABLET PO SCH (09:00)
[2017-06-23] MEDS: LISINOPRIL 40 MG TABLET PO SCH (09:38)
[2017-06-23] MEDS: METFORMIN 500 MG TABLET PO SCH ×2 (09:38→17:52)
[2017-06-23] MEDS: FAMOTIDINE 20 MG TABLET PO SCH ×2 (09:38→20:38)
[2017-06-23] MEDS: AZITHROMYCIN 500 MG TABLET PO SCH (09:38)
[2017-06-23] MEDS: CEFTRIAXONE 1 G in NS 100 ML IV SCH (09:40)
--- NOTE | 2017-06-23 11:27 | History & Physical Report ---
- History and Physical History and Physical: Dr. Kruse's note reviewed. Mr. Fraire interviewed and examined. CC: Dyspnea, cough HPI: Mr. Fraire is 67-year-old male who has had increasing dyspnea and exertional dyspnea for approximately 1 week. There is been associated cough occasionally productive of thick yellow-green sputum, chills at night, and he describes feeling feverish at times although he has not actually had recognized temperature. He's had increased arthralgias and headaches, loss of appetite, and generalized fatigue. He reports feeling clammy last night. Blood sugars have been poorly controlled during this time. He denied pleuritic pain or hemoptysis. He's had no orthopnea or edema. He presented to the emergency room last night where oxygen saturation was adequately maintained on room air and chest x-ray revealed infiltrate in the right lower lobe after which time patient was hospitalized for management. PH/SH/FH: agree with that recorded last night by Dr. Kruse with additional history of COPD, GERD, hyperlipidemia, p-afib, coronary artery disease managed by Dr. Dominguez-patient has several stents, BPH, allergic rhinitis craniotomy for "leaking aneuyrsm" 1998, bilat inguinal hernia repair, tonsillectomy, orchiectomy as an . He is smoked cigarettes intermittently over the past 50 years last discontinuing in 2009. At times he smoked heavily. He drinks a couple of beers a year and has no history of illicit drug use. Primary care physician is Dr. Salazar, his is his alternate decision maker/ DPOA and the patient is a full code. ROS: 10 point review positive only for chronic loose stools due to metformin and chronic arthralgias. Remainder of comprehensive review negative or as per history of present illness EXAM: General-NAD, alert, fluent speech; 98.3, 90, 141/77, 95% on room air HEENT-PERRL, EOMI without nystagmus, conjunctiva clear, sclera anicteric, conjugate gaze, facial structures symmetric, oropharynx clear, neck supple and without adenopathy Lungs-respirations nonlabored, good airflow, coarse sounds in the mid lung field posteriorly and upper lung field anteriorly, no wheezing at time of my exam, frequent cough Cardiac-regular rhythm, S1-S2 Abd-soft, nontender, bowel sounds present Ext-without edema Skin-without generalized rash or evidence of wounds on exposed skin surfaces Neuro-cranial nerves 3-12 intact, motor tone/power within normal limits, no tremors, sensation intact 4 extremities Psych-calm, cooperative DATA: WBC 14.5-15.8 (S77 B1 L12 M10), electrolytes unremarkable, creatinine 1.1 , AST 72, ALT 64, bilirubin 0.4, alkaline phosphatase 78 Troponin <0.012 Lactic acid 1.8-1.4 Respiratory viral panel negative Chest x-ray reviewed by myself reveals infiltrate in the upper segment of the right lower lobe EKG was also reviewed by myself demonstrating sinus tachycardia with rate 105, possible old inferior MN (significant baseline artifact precludes clear interpretation) no acute ST/T-wave changes but generalized T wave flattening present A/P: Community-acquired pneumonia Sepsis-leukocytosis, tachycardia, tachypnea all present on admission COPD with exacerbation Transaminitis Diabetes mellitus, type II CAD Paroxysmal atrial fibrillation Treatment for community-acquired pneumonia initiated in the emergency room with ceftriaxone and azithromycin. Additionally patient is receiving breathing treatments. These therapies will be continued on conjunction with addition of prednisone 40 mg daily for 5 day course. Sputum culture will be obtained and urine tested for Legionella and strep pneumococcus antigens. Home medications have been resumed for chronic medical problems. Blood sugars are well controlled to date and patient is on a carb-controlled diet. In sinus rhythm at present, chronically anticoagulated with Pradaxa for paroxysmal atrial fibrillation. Unclear if elevated transaminases chronic or acute with pneumonia. Reassess in several days. No evidence of organ dysfunction present; will ambulate and check oximetry as patient describes significant exertional dyspnea prior to hospitalization. Currently on no medications for COPD; patient reports this diagnosis was made last summer after extensive testing but no treatment was initiated. Will require MDI therapy at discharge with addition of Spiriva or LABA. Outpatient records and old hospital records reviewed.
[2017-06-23] MEDS: PredniSONE 20 MG TABLET PO SCH (12:04)
[2017-06-23] MEDS: INSULIN ASPART 100unit/ml INJECTION SQ PRN ×2 (12:06→20:46)
[2017-06-23] MEDS ORDERED: PNEUMOCOCCAL 23 VACCINE 0.5ml INJECTION IM ONE (18:22)
[2017-06-23] MEDS ORDERED: ATORVASTATIN 40 MG TABLET PO SCH (21:00)
[2017-06-23] MEDS ORDERED: TAMSULOSIN 0.4 MG CAPSULE PO SCH (21:00)
[2017-06-23] MEDS ORDERED: AMLODIPINE 10 MG TABLET PO SCH (21:00)
[2017-06-24] MEDS: INSULIN ASPART 100unit/ml INJECTION SQ PRN ×2 (05:55→10:40)
[2017-06-24] MEDS: ALBUTEROL/IPRATROPIUM 2.5mg-0.5mg/3ml NEB AEROSOL SCH ×2 (07:05→11:39)
[2017-06-24] MEDS: CEFTRIAXONE 1 G in NS 100 ML IV SCH (08:10)
[2017-06-24] MEDS: PredniSONE 20 MG TABLET PO SCH (08:10)
[2017-06-24] MEDS: FLUTICASONE NASAL SPRAY 50mcg EA NOSTRIL SCH (08:10)
[2017-06-24] MEDS: METFORMIN 500 MG TABLET PO SCH (08:11)
[2017-06-24] MEDS: LISINOPRIL 40 MG TABLET PO SCH (08:11)
[2017-06-24] MEDS: FAMOTIDINE 20 MG TABLET PO SCH (08:11)
[2017-06-24] MEDS: AZITHROMYCIN 500 MG TABLET PO SCH (08:11)
[2017-06-24 09:10] VITALS: BP 146/79; PULSE 61; TEMP 96.4
[2017-06-24 11:46] VITALS: RESP 18; O2SAT 98
[2017-06-24] MEDS ORDERED: INHALER ASSIST DEVICE (Optichamber) MC ONE (12:33)
--- NOTE | 2017-06-24 16:01 | Discharge Summary ---
Discharge Information Date of admission: 06/22/17 21:58 Anticipated date of discharge: 06/24/17 Attending Physician: Destiny Vickers MD Primary care physician: Kennedy Salazar MD - Discharge Diagnosis (1) Community acquired pneumonia Status: Acute Community-acquired pneumonia Sepsis COPD with exacerbation Transaminitis Diabetes mellitus, type II CAD Paroxysmal atrial fibrillation Hypertension - Laboratory Labs: On admission (06/22/17) WBC 14.5, hemoglobin 11.8, electrolytes unremarkable, creatinine 1.1, AST 72, ALT 64, lactic acid 1.8 Respiratory viral panel negative 06/24/17 04:47 06/24/17 04:47 - Microbiology Cultures 2 negative at discharge Streptococcus pneumonia and legionella urinary antigens pending discharge - Radiology Radiology: Chest x-ray on 06/22/17: New dense airspace consolidation in the posterior right upper lobe. Left lung is clear. No pleural effusion or pneumothorax. Heart size and mediastinal contours are stable. Pulmonary vascularity is normal. Impression: Right upper lobar pneumonia. History of Present Illness HPI: Mr. Fraire is 67-year-old male who has had increasing dyspnea and exertional dyspnea for approximately 1 week. There is been associated cough occasionally productive of thick yellow-green sputum, chills at night, and he describes feeling feverish at times although he has not actually had recognized temperature. He's had increased arthralgias and headaches, loss of appetite, and generalized fatigue. He reports feeling clammy last night. Blood sugars have been poorly controlled during this time. He denied pleuritic pain or hemoptysis. He's had no orthopnea or edema. He presented to the emergency room last night where oxygen saturation was adequately maintained on room air and chest x-ray revealed infiltrate in the right lower lobe after which time patient was hospitalized for management. Objective Vital signs: Temperature 96.4 F L 06/24/17 08:00 Pulse Rate 61 06/24/17 08:00 Respiratory Rate 18 06/24/17 11:40 Blood Pressure 146/79 H 06/24/17 08:00 Pulse Oximetry 98 -RA 06/24/17 11:40 NAD, alert Respirations nonlabored, good airflow, minimal crackles at the left base posteriorly Regular rhythm, S1-S2 Abdomen soft, nontender Height/Weight/BMI: Height 1.78 m Weight 90.9 kg Body Mass Index 29.3 Hospital Course This is a general summary of the patient's hospital course. For more details refer to the complete medical record. Hospital course: Mr. Fraire was admitted the evening of 06/22 with community-acquired pneumonia. Treatment was initiated with ceftriaxone and azithromycin in conjunction with DuoNeb breathing treatments. Prednisone was added on the morning of 06/23 for five -day course help with pulmonary inflammation. Patient was not hypoxic and did not desaturate with ambulation on 06/23. Clinical symptoms resolve quickly and he was significantly improved on 06/24/17. He completed 3 days of azithromycin 500 mg /day prior to discharge. He was converted from ceftriaxone to cefuroxime 500 mg twice a day for an additional 5 days. On 06/24 patient reports feeling significantly improved and denied dyspnea, exertional dyspnea and reported having only minimal residual cough. He had no fever in the 24 hours prior to discharge. He expressed concern about underlying COPD and I've elected to initiate treatment with Spiriva daily and he was discharged home with albuterol MDI for as needed use. Blood sugars were slightly elevated during the hospitalization in conjunction with prednisone use with the highest glucose recorded 224. Patient's A1c indicated good control overall at 6.7. Patient received Pneumovax 23 on 06/23. He is asked to follow-up with Dr. Salazar next week as previously scheduled. Time spent with patient: discharge greater than 30 minutes Resuscitation Status: Full Code Discharge Plan - Discharge Disposition Discharge Date: 06/24/17 Disposition: 01 Discharged Home, Self-Care *Condition: Improved Reason For Visit (Visit label in EMR): pneumonia - Discharge Medications *Discharge Medications: New Tiotropium Handihaler [Spiriva] 1 cap ORAL INH DAILY #1 inhaler CefUROXime [Ceftin] 500 mg PO Q12HR #10 tab Albuterol HFA Inhaler [Ventolin Hfa 90 mcg/actuation] 2 puff ORAL INH Q4HR PRN #1 inhaler PRN Reason: Shortness Of Air/Wheezing PredniSONE [Deltasone 20 mg] 40 mg PO WB #6 tab Continue Atorvastatin Calcium 40 mg PO HS #90 Fluticasone Nasal [place] [Flonase] 1 spray EA NOSTRIL BID #16 Omeprazole 40 mg PO QAM #90 Tamsulosin [Flomax] 0.4 mg PO HS Dabigatran [Pradaxa] 150 mg PO BID Lisinopril [Prinivil] 40 mg PO QAM Amlodipine [Norvasc] 10 mg PO HS Metformin [Glucophage] 1,000 mg PO BIDWM Fish Oil/Dha/Epa [Fish Oil 1,200 mg Fish Oil] 2,400 mg PO BID - Discharge Packet/Instructions *Diet: Diabetic, low-fat *Activity: As tolerated *Pain Management/Treatment: Tylenol if pain medication needed *Wound Care: Not applicable Additional Instructions: 1. Continue antibiotic (cefuroxzime) twice daily for 5 more days. 2. Use [id number] cough syrups if needed. 3. Start Spiriva 1 inhalation daily for COPD. 4. Use albuterol metered-dose inhaler 2 puffs every 4 hours as needed for cough, wheezing, or shortness of breath. 5. A1C was 6.7 on 06/22/17; AST/ALT slightly elevated on admission at 72/64 respectively , both improved at discharge-Dr. Salazar will probably want to repeat these in the near future. 6. Pneumovax-23 Valent given on 06/23/17. *Expected Signs/Symptoms: Cough may persist for 1-2 weeks; you may have more shortness of breath than normal for the next week but it should improve rapidly. *Notify Physician if: Increasing difficulty breathing, fevers, coughing up blood *During Business Hours Contact: Dr. Salazar's office *After Business Hours Contact: Call [facility] at [phone] and ask that the on-call physician be paged *Pending Lab/Results: Follow up w/Provider - Referrals/Follow Up - Patient Handouts Patient Handouts: COPD (Chronic Obstructive Pulmonary Disease) (GEN), Pneumonia (GEN) - Dismissal Complete Discharge Instructions are:: Complete Physician Narrative - Narrative Attestation Narrative: Date: 06/24/17 Time: 6085
== END 2017-06-24 13:00 | disposition home or self-care (01) | DRG 871 ==
LOC: ED 18:46 → MED 21:58
PROVIDERS: ADMIT Internal Medicine; ATTEND Internal Medicine